=== PATIENT | female | born 1970 | race Caucasian/White ===

== ENCOUNTER → 2017-06-16 | Outpatient (REF) | payer OTHER ==
[~2017-06-16] MED LIST: ALBU17IN2 INH; ALPH600C PO; ASCO25TA PO; AZEL0.1S3; BETA10003 PO; BUPR1TAB53 PO; CENTTAB47 PO; CLAR10CA3 PO; CYCL10TA PO; ECOT81TA5 PO; FLON0.054; GABA-282 PO; IBUP80TA PO; LEVO50TA5 PO; METF-415 PO; MIRA33504 PO; MOME50SP; MUCI600T37 PO; MUCITAB PO; NASA0.653; PRIL20CA9 PO; PROAAER10 INH; SIMV20TA2 PO; SIMV40TA2 PO; SINUPOW; VENTAER IN; VITA10005 PO; VITA200016 PO; VITA500T PO; loratidine
== END ==
LOC: M LAB REF 12:58
PROVIDERS: ATTEND Physician Assistant Medical
DX: H92.11 Otorrhea, right ear (principal)

== ENCOUNTER → 2017-10-04 | Outpatient (CLI) | payer OTHER | LOC: M WHC 10:20 | DX: Z12.31 Encounter for screening mammogram for malignant neoplasm of breast (principal) | CPT/HCPCS: 77067 ==

== ENCOUNTER → 2017-12-08 | Outpatient (CLI) | payer OTHER | LOC: M PAIN 11:00 | DX: M43.02 Spondylolysis, cervical region (principal); E78.5 Hyperlipidemia, unspecified; E03.9 Hypothyroidism, unspecified; K21.9 Gastro-esophageal reflux disease without esophagitis; Z79.82 Long term (current) use of aspirin; Z79.899 Other long term (current) drug therapy; Z91.040 Latex allergy status | CPT/HCPCS: G0463 ==

== ENCOUNTER → 2018-02-23 | Outpatient (CLI) | payer OTHER | LOC: M RAD 12:29 | DX: M43.02 Spondylolysis, cervical region (principal); M48.02 Spinal stenosis, cervical region | CPT/HCPCS: 72141 ==

== ENCOUNTER → 2018-10-05 | Outpatient (CLI) | payer OTHER ==
[~2018-10-05] MED LIST changes: -ASCO25TA PO; -GABA-282 PO; +GABA-843 PO; +VITA1TAB23 PO
--- NOTE | 2018-10-25 02:13 | ECWPNPC ---
PATIENT NAME: JOSTIN HARRIS : 1970 GENDER: FEMALE VISIT DATE: 10/05/2018 DISCHARGE DATE: 10/05/18 1454 VISIT LOCKED DATE TIME: PHYSICIAN: JULIO NAYLOR RESOURCE: JULIO NAYLOR REASON FOR APPOINTMENT 1. NECK/BACK-30 MIN HISTORY OF PRESENT ILLNESS HISTORY OF PRESENT ILLNESS: PAIN THE PATIENT DESCRIBES THE PAINDURING THE LAST MONTH SEVERITY - PAIN SCORE OF3/10 48 YR OLD FEMALE WITH CHRONIV CERVICAL AND LUMBAR PAIN FOR SEVERAL YEARS. SHE REPORTS RADICULAR SYMPTOMS DOWN HER LEFT ARM.MRI CERVICAL SPINE 2018: SPONDYLOSIS C4-C5 THROUGH C6-C7.HAS NEW NARROWING ON THE RIGHT AT C5-C6 LEVEL IS NEW.MRI THROACIC SPINE 2018: NORMAL STUDYMRI LUMBAR SPINE 2018: DIFFUSE DISC BULGE AT L4-5 AND L5-S1. THERE IS GRADE 2 SPONDY;O;ISTHESIS ON L5 ON S1 WITH ASSOCIATED L5 PARS DEFECT. THERE IS COMPRESSION OF L5 NERVES IN THE NEURAL FORAMINA. FALL RISK SCREENING: SCREENING :NO FALLS REPORTED IN THE LAST YEAR CURRENT MEDICATIONS TAKING VITAMIN D 2000 UNIT TABLET DIRECTED ORALLY DAILY TAKING ASPIR-81 81 MG TABLET DELAYED RELEASE 1 TABLET ORALLY ONCE A DAY TAKING BETA CAROTENE 15 MG CAPSULE 1 CAPSULE ORALLY ONCE A DAY TAKING MULTIVITAMINS TABLET DIRECTED ORALLY DAILY TAKING VITAMIN C 500 MG CAPSULE DIRECTED ORALLY DAILY TAKING SIMVASTATIN 40 MG TABLET 1 TABLET IN THE EVENING ORALLY ONCE A DAY TAKING IBUPROFEN 800 MG TABLET 1 TABLET ORALLY NEEDED, NOTES: COUPLE DYS AGO TAKING MUCINEX 600 MG TABLET EXTENDED RELEASE 12 HOUR 1 TABLET NEEDED ORALLY DAILY TAKING ALBUTEROL SULFATE HFA 108 (90 BASE) MCG/ACT AEROSOL SOLUTION 2 PUFFS NEEDED INHALATION EVERY 4 HRS TAKING VITAMIN E 100 UNIT CAPSULE 1 CAPSULE ORALLY ONCE A DAY TAKING ALPHA LIPOIC ACID 100 MG CAPSULE ORALLY DAILY TAKING OMEPRAZOLE 40 MG CAPSULE DELAYED RELEASE 1 CAPSULE ORALLY ONCE A DAY TAKING LORATADINE 10 MG TABLET 1 TABLET ORALLY ONCE A DAY TAKING GABAPENTIN 300 MG 1 TABLET IN AM 2 TAB AT NIGHT ORALLY TWICE DAILY TAKING FLEXERIL 10 MG 30 10 MG TABLETS 1 ORALLY THREE TIMES DAILY TAKING BUPROPION HCL ER (SR) 150 MG TABLET EXTENDED RELEASE 12 HOUR 1 TABLET IN THE MORNING ORALLY BID TAKING ACIDOPHILUS 100 MG CAPSULE DIRECTED ORALLY TAKING CYCLOBENZAPRINE HCL 10 MG TABLET 1 TABLET NEEDED ORALLY THREE TIMES A DAY TAKING VITAMIN B12 1000 MCG TABLET EXTENDED RELEASE 1 TABLET ORALLY ONCE A DAY TAKING VITAMIN B COMPLEX - TABLET DIRECTED ORALLY TAKING GUAIFENESIN 400 MG TABLET 1 TABLET NEEDED ORALLY EVERY 4 HRS NOT-TAKING LEVOTHYROXINE SODIUM 50 MCG TABLET 1 TABLET ON AN EMPTY STOMACH IN THE MORNING ORALLY ONCE A DAY NOT-TAKING TOPAMAX 50 MG TABLET 1 TABLET ORALLY ONCE A DAY NOT-TAKING VALIUM 10 MG TABLET 1 ORALLY 1 TAB 1HR PRE PROC. MDD1, NOTES: 1400 NOT-TAKING OXYCODONE HCL 5 MG TABLET 2 ORALLY 2 TAB 1HR PRE PROC MDD2, NOTES: 1400 MEDICATION LIST REVIEWED AND RECONCILED WITH THE PATIENT PAST MEDICAL HISTORY HYPERLIPIDEMIA HYPOTHYROIDISM PERSISTANT HEMATURIA LUMBAR AND CERVICAL BACK PAIN ALLERGIES LATEX (FOR ALLERGY USE ONLY): RASH - ALLERGY SURGICAL HISTORY T&A 09/20 TUBES IN EARS 79,80 EPIDURAL INJECTIONS ENDOMETRIAL ABLATION AND BLADDER SLING 06/2015 TUBES IN EARS 2016 FAMILY HISTORY NO FAMILY HISTORY DOCUMENTED. SOCIAL HISTORY GENERAL: TOBACCO USE ARE YOU A:CURRENT SMOKER ARE YOU INTERESTED IN QUITTING?NOT READY TO QUIT COUNSELED THE PATIENT ON SMOKING EFFECTS, EDUCATION [id number]/28/2019 HOW MANY CIGARETTES A DAY DO YOU SMOKE?6-10 PATIENT COUNSELED ON THE DANGERS OF TOBACCO USE AND URGED TO QUIT:10/05/2018 SMOKING CESSATION INFORMATION GIVEN10/05/2018 LATEX QUESTIONNAIRE LATEX ALLERGY : HAVE YOU EVER DEVELOPED ANY TYPE OF REACTION AFTER HANDLING LATEX PRODUCTS SUCH RUBBER GLOVES, CONDOMS, DIAPHRAGMS, BALLOONS, SOCKS, OR UNDERWEAR?NO LATEX ALLERGY : HAVE YOU EVER DEVELOPED ANY TYPE OF REACTION DURING OR AFTER DENTAL APPOINTMENT, VAGINAL/RECTAL EXAMINATION, SURGICAL PROCEDURE, OR ANY OTHER EXPOSURE?NO LATEX RISK : HAVE YOU EVER HAD ANY DIFFICULTY BREATHING OR HIVES AFTER EATING OR HANDLING ANY FRUITS, OR VEGETABLES; SUCH KIWI, BANANAS, STONE FRUITS, OR CHESTNUTSNO LATEX RISK : DO YOU HAVE A PREVIOUS PERSONAL HISTORY OF MORE THAN NINE SURGERIES, SPINA BIFIDA, OR REPEATED CATHERTIZATIONS? NO LATEX RISK : ARE YOU FREQUENTLY EXPOSED TO LATEX PRODUCTS IN YOUR OCCUPATION?NO DATE ASKED : 10/05/2018 CAFFEINE CAFFEINE USE?YES HOW OFTEN AND HOW MUCH? 1-2 DAILY DIET: REGULAR. EXERCISE: NO REGULAR EXERCISE. PAIN CLINIC PFS, CLERGY, PUBLIC HEALTH REFERRALS PFS REFERRAL NEEDED?NO CLERGY REFERRAL NEEDED?NO PUBLIC HEALTH REFERRAL NEEDED?NO WAS THE PROVIDER NOTIFIED OF ANY PERTINENT INFO?YES HAS THE PATIENT BEEN EDUCATED REGARDING HIS/HER PLAN OF CARE?YES RE-ORIENTED TO PAIN MANAGEMENT HAS THE PATIENT BEEN EDUCATED REGARDING PAIN, THE RISK FOR PAIN, THE IMPORTANCE OF EFFECTIVE PAIN MANAGEMENT, AND THE PAIN ASSESSMENT PROCESS?YES ADVANCE DIRECTIVE ADVANCE DIRECTIVE DISCUSSED WITH PATIENT:YES PT DECLINES INFORMATION AND NO HCP ON FILE HOSPITALIZATION/MAJOR DIAGNOSTIC PROCEDURE NO HOSPITALIZATION HISTORY. REVIEW OF SYSTEMS REVIEWED BY: PROVIDER: . CONSTITUTIONAL: ANY CHANGE IN YOUR MEDICAL CONDITION? NO . CHILLS NO . FEVER NO . INFECTION: DO YOU HAVE NEW INFECTIONS? NO . DO YOU HAVE HISTORY OF MRSA? NO . MUSCULOSKELETAL: ANY NEW PATTERNS OF PAIN OR NUMBNESS? YES, PAIN RADIATING FROM NECK DOWN ARM TO WRIST . GASTROENTEROLOGY: ANY NEW CHANGE IN BOWEL CONTROL? NO . GENITOURINARY: ANY NEW CHANGE IN BLADDER CONTROL? NO . IS THERE A CHANCE YOU COULD BE ? NO . HEMATOLOGY/LYMPH: DO YOU TAKE ANY BLOOD THINNERS? (FOR EXAMPLE- COUMADIN, PLAVIX, AGGRENOX, PLATEL, PRADAXA, OR XARELTO) NO . WHEN WAS YOUR LAST DOSE? DATE: TIME: . NEUROLOGY: HAVE YOU FALLEN IN THE PAST 12 MONTHS? NO . ANY NEW EXTREMITY NUMBNESS OR WEAKNESS? NO . CARDIOLOGY: DO YOU HAVE A PACEMAKER OR DEFIBRILLATOR? NO . RESPIRATORY: HAVE YOU BEEN SICK IN THE PAST WEEK? NO . FEVER NO . FLU LIKE SYMPTOMS? NO . COUGH NO . INTEGUMENTARY: DO YOU HAVE ANY RASHES OR OPEN SORES? NO . ALLERGIC/IMMUNO: ARE YOU ALLERGIC TO IV DYE? NO . ANY NEW ALLERGIES? NO . PSYCHIATRIC: DO YOU HAVE THOUGHTS OF HURTING YOURSELF OR SOMEONE ELSE? NO . ARE YOU ABUSED, NEGLECTED, OR IN AN UNSAFE ENVIRONMENT? NO . ENDOCRINOLOGY: ARE YOU DIABETIC? NO . OTHER: DO YOU NEED ANY PRESCRIPTIONS? NO . IF YES, PLEASE LIST: ____ . ANY NEW PROBLEMS WITH YOUR MEDICATIONS? NO . WHEN DID YOU LAST EAT? ____ . WHEN DID YOU LAST DRINK? ____ . WHAT DID YOU LAST DRINK? ____ . NAME OF PERSON DRIVING YOU HOME? ____ . DO YOU HAVE ANY OTHER QUESTIONS OR CONCERNS NO . VITAL SIGNS WT 197.8 LBS, HT 5'1", BMI 37.37 INDEX, BP 151/92 MM HG, HR 89 /MIN, RR 18 /MIN, TEMP 99.2 F, OXYGEN SAT % 99%, SAFE IN ENV? (Y/N) Y, REVIEWED BY: TAMMI. EXAMINATION GENERAL EXAMINATION: GENERAL APPEARANCE:NO ACUTE DISTRESS, WELL NOURISHED AND HYDRATED. PSYCHAPPROPRIATE MOOD AND AFFECT . NECK: NECK : NORMAL ALIGNMENT. TENDER TO PALAPATION ALONG LEFT PARACERVICAL MUSCLES.POSITIVE SPURLING'S LEFT SIDE. FROM. LUNGS:CLEAR TO AUSCULTATION BILATERALLY, NO WHEEZES, RHONCHI, RALES. HEART:NO MURMURS, REGULAR RATE AND RHYTHM. NEUROLOGIC EXAM:ALERT AND ORIENTED X 3, DTRS 1-2+ IN ALL 4 EXTREMITIES. ASSESSMENTS CERVICALGIA - M54.2 (PRIMARY) CERVICAL DISC DISORDER WITH RADICULOPATHY, MID-CERVICAL REGION - M50.12 TREATMENT CERVICALGIA CLINICAL NOTES: SALTY . DISPOSITION & COMMUNICATION FOLLOW UP POST PROCEDURE (REASON: SALTY) ELECTRONICALLY SIGNED BY QUYEN LEMA ON 10/24/2018 AT 10:30 AM EDT DISCLAIMER : THIS IS A VISIT SUMMARY EXTRACTED FROM THE [employer] CHART. IT IS NOT A COPY OF THE [employer] PROGRESS NOTE. ASPNE
== END ==
LOC: M PAIN 14:00
PROVIDERS: ATTEND Nurse Practitioner Family
DX: M50.120 Mid-cervical disc disorder, unspecified level (principal); G89.29 Other chronic pain; E03.9 Hypothyroidism, unspecified; E78.5 Hyperlipidemia, unspecified; F17.210 Nicotine dependence, cigarettes, uncomplicated; Z79.82 Long term (current) use of aspirin; Z79.899 Other long term (current) drug therapy; Z91.040 Latex allergy status

== ENCOUNTER → 2018-10-12 | Outpatient (CLI) | payer OTHER ==
--- NOTE | 2018-10-12 12:06 | REPMRS ---
Patient History The patient states she had a clinical breast exam in 09/2018. Family history of breast cancer at age 55 in mother, breast cancer at age 50 or over in maternal aunt, ovarian cancer under age 50 in maternal cousin. 3D TOMOSYNTHESIS WAS PERFORMED. Digital Woman Screen Mammo: October 12, 2018 - Exam #: [id number] Bilateral CC and MLO view(s) were taken. Technologist: Nisha Disla Technologist Prior study comparison: October 04, 2017, digital woman screen mammo performed at [facility] [employer] [facility] to [facility]. July 01, 2016, digital woman screen mammo performed at [facility] to [facility]. FINDINGS: There are scattered fibroglandular densities. There has been no change in the appearance of the mammogram from the prior studies. There is a mild amount of residual fibroglandular tissue which is fairly symmetric. There is no interval development of dominant mass, architectural distortion, or clustered microcalcification suggestive of malignancy. Assessment: BI-RADS/ACR category 1 mammogram. Negative Mammogram. Recommendation Routine screening mammogram in 1 year (for women over age 40). This mammogram was interpreted with the aid of an FDA-approved computer-aided dectection system. THE LIFETIME RISK OF BREAST CANCER IS 21.5%, THEREFORE SUPPLEMENTAL SCREENING MRI OF THE BREASTS IS RECOMMENDED. Electronically Signed By: Chadwick Ritchie MD 10/12/18 [id number]
== END ==
LOC: M WHC 11:02
PROVIDERS: ATTEND Nurse Practitioner Family
DX: Z12.31 Encounter for screening mammogram for malignant neoplasm of breast (principal); Z80.3 Family history of malignant neoplasm of breast; Z80.41 Family history of malignant neoplasm of ovary

== ENCOUNTER → 2018-11-16 | Outpatient (CLI) | payer OTHER ==
[~2018-11-16] MED LIST changes: +ISOVUE-M 300 61% 15ML VIAL (Q9967) As Ordered ONE; +LIDOCAINE 1% SDV INJ 30 ML VIAL As Ordered ONE; +diazePAM 5 MG TAB As Ordered ONE; +methylPREDNISolone SUSP 40 MG/ML (DEPO-medrol) VIAL (J1030) As Ordered ONE; +oxyCODONE 5MG TAB As Ordered ONE
--- NOTE | 2018-11-16 16:09 | REP ---
Partial cervical spine series: Three views. History: Cervical epidural steroid injection for pain. 10 seconds of fluoroscopy time is reported. Findings: A sequence of three last image hold fluoroscopically obtained spot radiographs of the cervicothoracic junction document needle position and contrast injection associated with cervical epidural injection procedure. Electronically Signed by Ulisses Tejada MD 11/16/2018 04:51 P
--- NOTE | 2018-12-02 23:32 | ECWPNPC ---
PATIENT NAME: JOSTIN HARRIS : 1970 GENDER: FEMALE VISIT DATE: 11/16/2018 DISCHARGE DATE: 11/16/18 1607 VISIT LOCKED DATE TIME: PHYSICIAN: RIMA LLOYD MD RESOURCE: RIMA LLOYD MD REASON FOR APPOINTMENT 1. SALTY HISTORY OF PRESENT ILLNESS HISTORY OF PRESENT ILLNESS: PAIN THE PATIENT DESCRIBES THE PAIN... FALL RISK SCREENING: SCREENING :NO FALLS REPORTED IN THE LAST YEAR CURRENT MEDICATIONS TAKING VITAMIN D 2000 UNIT TABLET DIRECTED ORALLY DAILY, NOTES: 11/16 629 TAKING ASPIR-81 81 MG TABLET DELAYED RELEASE 1 TABLET ORALLY ONCE A DAY, NOTES: NONE IN ONE WEEK TAKING VITAMIN C 500 MG CAPSULE DIRECTED ORALLY DAILY, NOTES: 11/15/18 NOON TAKING SIMVASTATIN 40 MG TABLET 1 TABLET IN THE EVENING ORALLY ONCE A DAY, NOTES: 11/15/18 PM TAKING IBUPROFEN 800 MG TABLET 1 TABLET ORALLY NEEDED, NOTES: 11/15/18 PM TAKING MUCINEX 600 MG TABLET EXTENDED RELEASE 12 HOUR 1 TABLET NEEDED ORALLY DAILY, NOTES: 11/16/18629 TAKING ALBUTEROL SULFATE HFA 108 (90 BASE) MCG/ACT AEROSOL SOLUTION 2 PUFFS NEEDED INHALATION EVERY 4 HRS, NOTES: 2 DAYS AGO TAKING VITAMIN E 100 UNIT CAPSULE 1 CAPSULE ORALLY ONCE A DAY, NOTES: 629 TAKING ALPHA LIPOIC ACID 200 MG CAPSULE ORALLY DAILY, NOTES: 11/15/18 PM TAKING OMEPRAZOLE 40 MG CAPSULE DELAYED RELEASE 1 CAPSULE ORALLY ONCE A DAY, NOTES: 11/15/18 TAKING LORATADINE 10 MG TABLET 1 TABLET ORALLY ONCE A DAY, NOTES: 629 TAKING GABAPENTIN 300 MG 1 TABLET ORALLY QID, NOTES: 11/16/18629 TAKING FLEXERIL 10 MG 30 10 MG TABLETS 1 ORALLY THREE TIMES DAILY, NOTES: 11/16/18629 TAKING BUPROPION HCL ER (SR) 150 MG TABLET EXTENDED RELEASE 12 HOUR 1 TABLET IN THE MORNING ORALLY BID, NOTES: 11/16 629 TAKING ACIDOPHILUS 100 MG CAPSULE DIRECTED ORALLY , NOTES: 11/15/18 PM TAKING VITAMIN B COMPLEX - TABLET DIRECTED ORALLY , NOTES: 2 DAYS AGO TAKING GUAIFENESIN 400 MG TABLET 1 TABLET NEEDED ORALLY EVERY 4 HRS, NOTES: 11/15/18 PM NOT-TAKING BETA CAROTENE 15 MG CAPSULE 1 CAPSULE ORALLY ONCE A DAY NOT-TAKING MULTIVITAMINS TABLET DIRECTED ORALLY DAILY NOT-TAKING CYCLOBENZAPRINE HCL 10 MG TABLET 1 TABLET NEEDED ORALLY THREE TIMES A DAY, NOTES: DUPLICATE NOT-TAKING VITAMIN B12 1000 MCG TABLET EXTENDED RELEASE 1 TABLET ORALLY ONCE A DAY NOT-TAKING LEVOTHYROXINE SODIUM 50 MCG TABLET 1 TABLET ON AN EMPTY STOMACH IN THE MORNING ORALLY ONCE A DAY NOT-TAKING TOPAMAX 50 MG TABLET 1 TABLET ORALLY ONCE A DAY NOT-TAKING VALIUM 10 MG TABLET 1 ORALLY 1 TAB 1HR PRE PROC. MDD1, NOTES: 1400 NOT-TAKING OXYCODONE HCL 5 MG TABLET 2 ORALLY 2 TAB 1HR PRE PROC MDD2, NOTES: 1400 MEDICATION LIST REVIEWED AND RECONCILED WITH THE PATIENT PAST MEDICAL HISTORY HYPERLIPIDEMIA HYPOTHYROIDISM PERSISTANT HEMATURIA LUMBAR AND CERVICAL BACK PAIN ALLERGIES LATEX (FOR ALLERGY USE ONLY): RASH - ALLERGY SURGICAL HISTORY T&A 09/20 TUBES IN EARS 79,80 EPIDURAL INJECTIONS ENDOMETRIAL ABLATION AND BLADDER SLING 06/2015 TUBES IN EARS 2016 FAMILY HISTORY FATHER: DIAGNOSED WITH HYPERTENSION SOCIAL HISTORY GENERAL: TOBACCO USE ARE YOU A:CURRENT SMOKER ARE YOU INTERESTED IN QUITTING?NOT READY TO QUIT COUNSELED THE PATIENT ON SMOKING EFFECTS, EDUCATION [id number]/28/2019 HOW MANY CIGARETTES A DAY DO YOU SMOKE?6-10 PATIENT COUNSELED ON THE DANGERS OF TOBACCO USE AND URGED TO QUIT:10/05/2018 SMOKING CESSATION INFORMATION GIVEN10/05/2018 PAIN CLINIC PFS, CLERGY, PUBLIC HEALTH REFERRALS PFS REFERRAL NEEDED?NO CLERGY REFERRAL NEEDED?NO PUBLIC HEALTH REFERRAL NEEDED?NO WAS THE PROVIDER NOTIFIED OF ANY PERTINENT INFO?YES HAS THE PATIENT BEEN EDUCATED REGARDING HIS/HER PLAN OF CARE?YES RE-ORIENTED TO PAIN MANAGEMENT HAS THE PATIENT BEEN EDUCATED REGARDING PAIN, THE RISK FOR PAIN, THE IMPORTANCE OF EFFECTIVE PAIN MANAGEMENT, AND THE PAIN ASSESSMENT PROCESS?YES LATEX QUESTIONNAIRE LATEX ALLERGY : HAVE YOU EVER DEVELOPED ANY TYPE OF REACTION AFTER HANDLING LATEX PRODUCTS SUCH RUBBER GLOVES, CONDOMS, DIAPHRAGMS, BALLOONS, SOCKS, OR UNDERWEAR?YES DATE ASKED : 11/16/2018 CAFFEINE CAFFEINE USE?YES HOW OFTEN AND HOW MUCH? 1-2 DAILY ADVANCE DIRECTIVE ADVANCE DIRECTIVE DISCUSSED WITH PATIENT:YES PT DECLINES INFORMATION AND NO HCP ON FILE 11/16/18 DIET: REGULAR. LANGUAGE LANGUAGES SPOKEN:CZECH EXERCISE: NO REGULAR EXERCISE. REVIEWED WITH PT 11/16/18 1403 BV. HOSPITALIZATION/MAJOR DIAGNOSTIC PROCEDURE NO HOSPITALIZATION HISTORY. REVIEW OF SYSTEMS REVIEWED BY: PROVIDER: . CONSTITUTIONAL: ANY CHANGE IN YOUR MEDICAL CONDITION? NO . CHILLS NO . FEVER NO . INFECTION: DO YOU HAVE NEW INFECTIONS? NO . DO YOU HAVE HISTORY OF MRSA? NO . MUSCULOSKELETAL: ANY NEW PATTERNS OF PAIN OR NUMBNESS? NO . GASTROENTEROLOGY: ANY NEW CHANGE IN BOWEL CONTROL? NO . GENITOURINARY: ANY NEW CHANGE IN BLADDER CONTROL? NO . IS THERE A CHANCE YOU COULD BE ? NO . HEMATOLOGY/LYMPH: DO YOU TAKE ANY BLOOD THINNERS? (FOR EXAMPLE- COUMADIN, PLAVIX, AGGRENOX, PLATEL, PRADAXA, OR XARELTO) NO . WHEN WAS YOUR LAST DOSE? DATE: TIME: . NEUROLOGY: HAVE YOU FALLEN IN THE PAST 12 MONTHS? NO . ANY NEW EXTREMITY NUMBNESS OR WEAKNESS? NO . CARDIOLOGY: DO YOU HAVE A PACEMAKER OR DEFIBRILLATOR? NO . RESPIRATORY: HAVE YOU BEEN SICK IN THE PAST WEEK? NO . FEVER NO . FLU LIKE SYMPTOMS? NO . COUGH NO . INTEGUMENTARY: DO YOU HAVE ANY RASHES OR OPEN SORES? NO . ALLERGIC/IMMUNO: ARE YOU ALLERGIC TO IV DYE? NO . ANY NEW ALLERGIES? NO . PSYCHIATRIC: DO YOU HAVE THOUGHTS OF HURTING YOURSELF OR SOMEONE ELSE? NO . ARE YOU ABUSED, NEGLECTED, OR IN AN UNSAFE ENVIRONMENT? NO . ENDOCRINOLOGY: ARE YOU DIABETIC? NO . OTHER: DO YOU NEED ANY PRESCRIPTIONS? NO . IF YES, PLEASE LIST: ____ . ANY NEW PROBLEMS WITH YOUR MEDICATIONS? NO . WHEN DID YOU LAST EAT? 11/15/18 2230 . WHEN DID YOU LAST DRINK? 11/16/18 1015 . WHAT DID YOU LAST DRINK? BLACK COFFEE AND WATER . NAME OF PERSON DRIVING YOU HOME? KAY MONSALVE . DO YOU HAVE ANY OTHER QUESTIONS OR CONCERNS NO . VITAL SIGNS WT 193.6 LBS, HT 5'1", BMI 36.58 INDEX, BP 160/95 MM HG, HR 87 /MIN, RR 18 /MIN, TEMP 99.0 F, OXYGEN SAT % 95%, NA INITIALS SC 12:06, REVIEWED BY: BV. ASSESSMENTS CERVICAL DISC DISORDER WITH RADICULOPATHY OF CERVICAL REGION - M50.10 (PRIMARY) PROCEDURES PN CERVICAL EPIDURAL PRE PROCEDURE DIAGNOSIS CERVICAL DISC DISORDER WITH RADICULOPATHY POST PROCEDURE DIAGNOSIS CERVICAL DISC DISORDER WITH RADICULOPATHY PROCEDURE CERVICAL EPIDURAL STEROID INJECTION UNDER FLUOROSCOPIC GUIDANCE SURGEON DR. RIMA LLOYD [employer]ACH NONE ANESTHESIA LOCAL PRE PROCEDURE NOTE THE PATIENT HAS A HISTORY OF CHRONIC CERVICAL PAIN. I EVALUATE THE PATIENT AND REVIEWED THE CHART. I WENT OVER THE RISKS, ALTERNATIVES, AND BENEFITS ASSOCIATED WITH THIS PROCEDURE. THE PATIENT WOULD LIKE TO PROCEED AND GIVE CONSENT TO PERFORMED THE PROCEDURE. THE PATIENT DENIES UNEXPLAINABLE WEIGHT LOSS, FEVER, CHILLS, OR NEW CHANGES IN URINARY OR BOWEL CONTROL DESCRIPTION OF PROCEDURE THE PATIENT WAS BROUGHT TO THE PROCEDURE ROOM AND PLACED IN THE PRONE POSITION. THE CERVICOTHORACIC AREA WAS CLEANED WITH BETADINE SOLUTION AND DRAPED ASEPTICALLY. THE PROCEDURE WAS DONE UNDER STERILE CONDITIONS. I CHECKED LATERALITY AND THE LEVEL WHERE THE PROCEDURE WAS GOING TO BE PERFORMED WITH THE PATIENT AND THE SUPPORTING STAFF AT THE MOMENT OF THE TIME OUT IN THE PROCEDURE ROOM. UNDER FLUOROSCOPIC GUIDANCE, THE TARGET WAS SELECTED AT THE INTERLAMINAR LEVEL OF C7-T1. LIDOCAINE WAS USED TO NUMB THE SKIN AND THE SUBCUTANEOUS TISSUE BELOW IT. EPIDURAL TUOHY NEEDLE 17-GAUGE WAS ADVANCED UNDER FLUOROSCOPIC GUIDANCE AND FOLLOWING PATIENT FEEDBACK UNTIL THE EPIDURAL SPACE WAS REACHED 6 CM DEEP INTO THE SKIN BY THE LOSS OF RESISTANCE TECHNIQUE. ISOVUE M DYE 30%, 0.25 ML, WAS INJECTED SHOWING ADEQUATE SPREAD OF THE DYE. THEN, A SOLUTION OF 3 ML OF NORMAL SALINE WITH DEPO-MEDROL 60 MG WAS INJECTED SLOWLY FOLLOWING PATIENT FEEDBACK. THERE WAS NO EVIDENCE OF BLOOD, PARESTHESIA OR CEREBROSPINAL FLUID DURING THE PROCEDURE. THE PATIENT WAS SENT TO THE RECOVERY ROOM. THE PATIENT WAS MOVING THE EXTREMITIES AND DOING WELL. THERE WAS NO COMPLICATION DURING THE PROCEDURE. FLUOROSCOPY TIME WAS 10 SECONDS POST PROCEDURE NOTE THE PATIENT WILL BE SEEN IN A FOLLOW UP IN THE NEXT FEW WEEKS. INSTRUCTIONS WERE GIVEN, QUESTIONS WERE ANSWERED, AND THE PATIENT EXPRESSED UNDERSTANDING AND AGREES WITH THE PLAN. I, LAM CORDOVA, DOCUMENTED THE ABOVE INFORMATION ACTING A SCRIBE FOR DR. LLOYD. I HAVE REVIEWED THE ABOVE DOCUMENT, WRITTEN BY LAM CLARK AND I VERIFY THAT IT IS ACCURATE. DIAGNOSTIC IMAGING [facility] FLUORO GUIDE SPINE INJECTION (PAIN)[id number] PROCEDURE CODES 6045F RADXPS IN END [id number] PXD [id number] CERVICAL/THORACIC W/ IMAGING DISPOSITION & COMMUNICATION FOLLOW UP 3 WEEKS ELECTRONICALLY SIGNED BY RIMA LLOYD MD, MD ON 12/02/2018 AT 04:53 PM EDT DISCLAIMER : THIS IS A VISIT SUMMARY EXTRACTED FROM THE [employer] CHART. IT IS NOT A COPY OF THE [employer] PROGRESS NOTE. MTDD
== END ==
LOC: M PAIN 12:15
PROVIDERS: ATTEND Anesthesiology
DX: G89.29 Other chronic pain (principal); M50.10 Cervical disc disorder with radiculopathy, unspecified cervical region; E78.5 Hyperlipidemia, unspecified; E03.9 Hypothyroidism, unspecified; F17.210 Nicotine dependence, cigarettes, uncomplicated; Z79.82 Long term (current) use of aspirin; Z79.899 Other long term (current) drug therapy; Z91.040 Latex allergy status
CPT/HCPCS: 62321; J1030; Q9967

== ENCOUNTER 2020-02-29 18:57 | Inpatient (IN) | payer OTHER ==
[~2020-02-29] VITALS: Ht 154.9 cm; Wt 77.5 kg
[~2020-02-29 18:57] MED LIST changes: +ASCO250T20 PO; +CYCL-707 PO; -CYCL10TA PO; -ISOVUE-M 300 61% 15ML VIAL (Q9967) As Ordered ONE; -LIDOCAINE 1% SDV INJ 30 ML VIAL As Ordered ONE; -SIMV20TA2 PO; +SIMV20TA22 PO; -SIMV40TA2 PO; +SIMV40TA20 PO; +VITA-243 PO; -VITA1TAB23 PO; -VITA500T PO; -diazePAM 5 MG TAB As Ordered ONE; -methylPREDNISolone SUSP 40 MG/ML (DEPO-medrol) VIAL (J1030) As Ordered ONE; -oxyCODONE 5MG TAB As Ordered ONE
[2020-02-29] MEDS ORDERED: NS 1,000 ML IV ONE (19:30)
[2020-02-29 19:55] LABS: BASO # 0.1 10^3/uL (0.0-0.2); BASO % 0.7 % (0.0-1.0); EOS # 0.3 10^3/uL (0.0-0.5); EOS % 2.3 % (0.0-3.0); HEMOGLOBIN 11.8 g/dl (12.0-15.5); LYMPH # 3.8 10^3/uL (1.5-5.0); LYMPH % 25.8 % (24.0-44.0); MEAN CORPUSCULAR HEMOGLOBIN 26.5 pg (27.0-33.0); MEAN CORPUSCULAR HGB CONC 31.9 g/dl (32.0-36.5); MEAN CORPUSCULAR VOLUME 83.1 fl (80.0-96.0); MONO # 1.1 10^3/uL (0.0-0.8); MONO % 7.5 % (0.0-5.0); NEUTROPHILS # 9.3 10^3/uL (1.5-8.5); NEUTROPHILS % 63.4 % (36.0-66.0); PLATELET COUNT, AUTOMATED 377 10^3/uL (150-450); RED BLOOD COUNT 4.45 10^6/uL (4.00-5.40); WHITE BLOOD COUNT 14.7 10^3/uL (4.0-10.0)
[2020-02-29] MEDS ORDERED: GASTROGRAFIN SOLUTION 30ML (Q9963) As Ordered ONE (19:59)
[2020-02-29 20:31] LABS: ALBUMIN 3.3 GM/DL (3.2-5.2); ALT/SGPT 29 U/L (12-78); BILIRUBIN,DIRECT < 0.1 MG/DL (0.0-0.2); BILIRUBIN,TOTAL 0.2 MG/DL (0.2-1.0); BLOOD UREA NITROGEN 14 MG/DL (7-18); CALCIUM LEVEL 8.5 MG/DL (8.5-10.1); CARBON DIOXIDE LEVEL 21 MEQ/L (21-32); CHLORIDE LEVEL 109 MEQ/L (98-107); CREATININE FOR GFR 0.75 MG/DL (0.55-1.30); GLOMERULAR FILTRATION RATE > 60.0 (>58); GLUCOSE, FASTING 99 MG/DL (70-100); LIPASE 152 U/L (73-393); POTASSIUM SERUM 3.9 MEQ/L (3.5-5.1); SODIUM LEVEL 135 MEQ/L (136-145); TOTAL PROTEIN 7.1 GM/DL (6.4-8.2)
[2020-02-29] MEDS: GASTROGRAFIN SOLUTION 30ML PO SCH (20:39)
[2020-02-29] MEDS ORDERED: ISOVUE-370 76% 100ML VIAL As Ordered ONE (20:59)
--- NOTE | 2020-02-29 21:33 | REPVR ---
PROCEDURE INFORMATION: Exam: CT Abdomen And Pelvis With Contrast Exam date and time: 02/29/2020 9:02 PM Age: 49 years old Clinical indication: Abdominal pain; Generalized; Additional info: 1 month of abd pain/diarrhea TECHNIQUE: Imaging protocol: Computed tomography of the abdomen and pelvis with intravenous contrast. Radiation optimization: All CT scans at this facility use at least one of these dose optimization techniques: automated exposure control; mA and/or kV adjustment per patient size (includes targeted exams where dose is matched to clinical indication); or iterative reconstruction. Contrast material: ISOVUE 370; Contrast volume: 100 ml; Contrast route: INTRAVENOUS (IV); COMPARISON: CT ABD PELVIS W/O FOL BY WIT 02/06/2014 5:44 PM FINDINGS: Liver: There is a diffuse decrease in hepatic parenchymal density, consistent with fatty infiltration. There are no focal liver lesions present. Gallbladder and bile ducts: The gallbladder is normal. Pancreas: The pancreas is normal. Spleen: The spleen is normal. Adrenals: The adrenal glands are normal. Kidneys and ureters: The kidneys are normal. Stomach and bowel: The stomach is normal. There is acute diverticulitis involving the distal sigmoid colon, with phlegmon and developing abscess. Small dots of extraluminal air are noted. Appendix: A normal appendix is identified. Intraperitoneal space: See above. Vasculature: The vasculature is normal. Lymph nodes: There are several small to mildly prominent retroperitoneal lymph nodes which are likely reactive. Bladder: The bladder is normal. Reproductive: The uterus is normal. Bones/joints: Unremarkable. No acute fracture. IMPRESSION: Acute diverticulitis with phlegmon and developing abscess. Localized extraluminal air is noted. Electronically signed by: Nikki Valdez On 02/29/2020 21:33:32 PM
[2020-02-29] MEDS ORDERED: metroNIDAZOLE 500 MG in IV 1 EA IV ONE (21:45)
[2020-02-29] MEDS ORDERED: CIPROFLOXACIN 400 MG in IV 1 EA IV ONE (21:45)
[2020-02-29] MEDS ORDERED: MORPHINE 4 MG/ML 1ML VIAL/SYRINGE (J2270) IV ONE (21:45)
[2020-03-01] MEDS ORDERED: MUCI600T31 PO (00:05)
[2020-03-01] MEDS ORDERED: VITA200048 PO (00:05)
[2020-03-01] MEDS ORDERED: VITA100012 PO (00:05)
[2020-03-01] MEDS ORDERED: OMEP-221 PO (00:05)
[2020-03-01] MEDS: NS 1,000 ML IV SCH ×3 (03:24→13:12)
--- NOTE | 2020-03-01 05:41 | HPEPDOC ---
[facility] Medical History & Physical Date of Admission Mar 01, 2020 Date of Service: Mar 01, 2020 History and Physical CHIEF COMPLAINT: Abdominal pain HISTORY OF PRESENT ILLNESS: Patient is 49 year old female with PMH Hypothyroidism, GERD, HLD, and Asthma presents to the ER with complaints of persistent abdominal pain for 6 weeks. She reportedly was supposed to be seeing her PCP today for the problem but the appt was cancelled so she went to the ER. Pain had been intermittent for 6 weeks that is described as sharp in nature, generalized, worst at 10/10 that is associated with nausea briefly at one point but otherwise no other significant associations. She denies any noticable fever, chills, nausea, vomiting recently. Of note, patient state that she was told she had diverticulitis in the past about 6 years ago after being seen in the ER but did not get treated with antibiotics. She had seen Dr. Matamoros as outpatient and had a colonoscopy done then. Patient currently is comfortable and does not complain of any discomfort at all until her abdomen is palpated. CT scan done in ER shows findings consistent with acute diverticulitis of the distal sigmoid colon with phlegmon and developing abscess and small localized extraluminal air. PAST MEDICAL HISTORY: Refer to HPI PAST SURGICAL HISTORY: Tonsillectomy Ear surgery Endometrial ablation SOCIAL HISTORY: Smokes 5-10 cigarettes a day. Social alcohol use. uses marijuana and cocaine, last use yesterday. FAMILY HISTORY: mother- breast cancer ALLERGIES: Please see below. REVIEW OF SYSTEMS: 10 point ROS negative except as above HOME MEDICATIONS: Please see below. PHYSICAL EXAMINATION: - General: Lying in bed comfortably, Speaking in full sentences, AAOx3 - HEENT: Atraumatic, PERRLA - CVS: Normal rate, normal rhythm - Lungs: Good air entry bilaterally, No appreciable wheezing / rales / rhonchi - Abdomen: Soft, Moderate to severe tenderness generalized with palpation. Some guarding, no rebound tenderness. - Extremities: No extremity swelling, limbs intact - Skin: Warm and dry - Neuro: No focal motor or sensory deficit LABORATORY DATA: See below. IMAGING: CT Abdomen/pelvis Liver: There is a diffuse decrease in hepatic parenchymal density, consistent with fatty infiltration. There are no focal liver lesions present. Gallbladder and bile ducts: The gallbladder is normal. Pancreas: The pancreas is normal. Spleen: The spleen is normal. Adrenals: The adrenal glands are normal. Kidneys and ureters: The kidneys are normal. Stomach and bowel: The stomach is normal. There is acute diverticulitis involving the distal sigmoid colon, with phlegmon and developing abscess. Small dots of extraluminal air are noted. Appendix: A normal appendix is identified. Intraperitoneal space: See above. Vasculature: The vasculature is normal. Lymph nodes: There are several small to mildly prominent retroperitoneal lymph nodes which are likely reactive. Bladder: The bladder is normal. Reproductive: The uterus is normal. Bones/joints: Unremarkable. No acute fracture. IMPRESSION: Acute diverticulitis with phlegmon and developing abscess. Localized extraluminal air is noted. MICROBIOLOGY: Please see below. ASSESSMENT AND PLAN: 1. Acute diverticulitis of sigmoid colon w/ phlegmon and developing abscess - Pain improving, c/w pain control. - Maintain on Abx cipro and flagyl. Consult surgery, Dr. Bynum contacted in ER. - NPO at this time until after evaluation by surgery. 2. Hypothyroidism - no medication is listed. - f/u to see if patient is still taking synthroid. 3. HLD 4. GERD - omeprazole PRN 5. asthma - Duonebs PRN. DVT ppx: SCD Code status: Full code Vital Signs Vital Signs Date Time Temp Pulse Resp B/P (MAP) Pulse Ox O2 Delivery O2 Flow Rate FiO2 03/01/20 02:47 50 18 101/54 (70) 97 Room Air 02/29/20 23:32 98.0 Laboratory Data Labs 24H Laboratory Tests 2 02/29/20 19:40: Immature Granulocyte % (Auto) 0.3, Neutrophils (%) (Auto) 63.4, Lymphocytes (%) (Auto) 25.8, Monocytes (%) (Auto) 7.5H, Eosinophils (%) (Auto) 2.3, Basophils (%) (Auto) 0.7, Neutrophils # (Auto) 9.3H, Lymphocytes # (Auto) 3.8, Monocytes # (Auto) 1.1H, Eosinophils # (Auto) 0.3, Basophils # (Auto) 0.1, Nucleated Red Blood Cells % (auto) 0.0, Anion Gap 5L, Glomerular Filtration Rate > 60.0, Calcium Level 8.5, Total Bilirubin 0.2, Direct Bilirubin < 0.1, Aspartate Amino Transf (AST/SGOT) 19, Alanine Aminotransferase (ALT/SGPT) 29, Alkaline Phospha tase 123H, Total Protein 7.1, Albumin 3.3, Albumin/Globulin Ratio 0.9L, Lipase 152 02/29/20 21:42: Urine Color COLORLESS, Urine Appearance CLEAR, Urine pH 5.0, Urine Specific Grav ity 1.044, Urine Protein NEGATIVE, Urine Glucose (UA) NEGATIVE, Urine Ketones NEGATIVE, Urine Blood 1+H, Urine Nitrite NEGATIVE, Urine Bilirubin NEGATIVE, Urine Urobilinogen 0.2, Urine Leukocyte Esterase NEGATIVE, Urine WBC (Auto) 0, Urine RBC (Auto) 1, Urine Hyaline Casts (Auto) 0, Urine Bacteria (Auto) NEGATIVE, Urine Squamous Epithelial Cells 0, Urine Sperm (Auto) CBC/BMP Laboratory Tests 02/29/20 19:40 Home Medications Scheduled Ascorbic Acid (Vitamin C) 500 Mg Tab, 500 MG PO DAILY Ergocalciferol (Vitamin D2) (Vitamin D2) 50 Mcg Capsule, 2,000 UNIT PO DAILY Guaifenesin (Mucinex) 600 Mg Tab.er.12h, 600 MG PO DAILY Loratadine (Claritin) 10 Mg Cap, 10 MG PO DAILY Omeprazole (Omeprazole) 40 Mg Capsule.dr, 40 MG PO DAILY Vitamin E (Vitamin E) 1,000 Unit Capsule, 1,000 UNIT PO 3XW TUESDAY, TUESDAY, TUESDAY Scheduled PRN Albuterol Sulfate (Ventolin Hfa) 108 Mcg/Act Aer, 108 MCG IN Q4HP PRN for SHORTNESS OF BREATH USE WITH SPACER Allergies Coded Allergies: No Known Allergies (Unverified , 02/29/20) A-FIB/CHADSVASC A-FIB History Current/History of A-Fib/PAF?: No FEDERICA HA MD Mar 01, 2020 05:41
[2020-03-01] MEDS ORDERED: IPRATROPIUM 0.5MG/ALBUTEROL 2.5MG INH SOL UD 3ML (DUONEB) NEB PRN (05:45)
[2020-03-01 06:41] LABS: HEMATOCRIT 37.1 % (36.0-47.0); HEMOGLOBIN 11.5 g/dl (12.0-15.5); MEAN CORPUSCULAR HEMOGLOBIN 26.3 pg (27.0-33.0); MEAN CORPUSCULAR VOLUME 84.7 fl (80.0-96.0); PLATELET COUNT, AUTOMATED 337 10^3/uL (150-450); RED BLOOD COUNT 4.38 10^6/uL (4.00-5.40); WHITE BLOOD COUNT 10.5 10^3/uL (4.0-10.0)
[2020-03-01] MEDS: metroNIDAZOLE 500 MG in IV 1 EA IV SCH ×3 (06:50→22:39)
[2020-03-01 06:59] LABS: BLOOD UREA NITROGEN 8 MG/DL (7-18); CALCIUM LEVEL 8.2 MG/DL (8.5-10.1); CARBON DIOXIDE LEVEL 24 MEQ/L (21-32); CHLORIDE LEVEL 109 MEQ/L (98-107); GLOMERULAR FILTRATION RATE > 60.0 (>58); GLUCOSE, FASTING 96 MG/DL (70-100); POTASSIUM SERUM 3.8 MEQ/L (3.5-5.1); SODIUM LEVEL 139 MEQ/L (136-145)
[2020-03-01] MEDS ORDERED: MORPHINE 2 MG/ML 1ML VIAL (J2270) IV ONE (08:30)
--- NOTE | 2020-03-01 08:32 | IPNPDOC ---
Date Seen The patient was seen on 03/01/20. Progress Note SUBJECTIVE: c/o mild diffuse abdominal pain. No fevers or chills. Denies CP, n/v/d. OBJECTIVE PHYSICAL EXAMINATION: VITAL SIGNS: Please see below. GENERAL: comfortable in bed, lying flat HEENT: PERRLA CARDIOVASCULAR: RRR, normal S1S2. RESPIRATORY: CTAB. ABDOMINAL: mild diffuse tenderness to palpation, no rigidity, no rebound tenderness. BS hyperactive. EXTREMITIES: no deformity NEUROLOGICAL: no focal deficits PSYCHOLOGICAL: calm, cooperative, AAO x 3 LABORATORY DATA, IMAGING STUDIES, MICROBIOLOGY: Please see below. IMAGING: CT Abdomen/pelvis Liver: There is a diffuse decrease in hepatic parenchymal density, consistent with fatty infiltration. There are no focal liver lesions present. Gallbladder and bile ducts: The gallbladder is normal. Pancreas: The pancreas is normal. Spleen: The spleen is normal. Adrenals: The adrenal glands are normal. Kidneys and ureters: The kidneys are normal. Stomach and bowel: The stomach is normal. There is acute diverticulitis involving the distal sigmoid colon, with phlegmon and developing abscess. Small dots of extraluminal air are noted. Appendix: A normal appendix is identified. Intraperitoneal space: See above. Vasculature: The vasculature is normal. Lymph nodes: There are several small to mildly prominent retroperitoneal lymph nodes which are likely reactive. Bladder: The bladder is normal. Reproductive: The uterus is normal. Bones/joints: Unremarkable. No acute fracture. IMPRESSION: Acute diverticulitis with phlegmon and developing abscess. Localized extraluminal air is noted. DVT prophylaxis ordered?: Y ASSESSMENT AND PLAN: 49 yo F with a hx of hypothyroidism, GERD, HDL, asthma. Presented to ED with a 6 week hx of persistent abdominal pain. CT scan showing acute diverticulitis of distal sigmoid colon with phlegmon with developing abscess and localized extraluminal air. PROBLEMS: 1. Acute diverticulitis with abscess: WBC improving. IV flagyl. IV cipro. NPO. Surgery on consult. Imaging reviewed with Dr. Bynum. Recommends conservative management for now. Will follow. 2. Hypothyroid: patient confirms takes no medications. reports last TSH wnl. Check TSH in am. 3. HDL 4. GERD: ppi 5. asthma: duonebs prn DVT ppx: SCD VS, I&O, 24H, Fishbone Vital Signs/I&O Vital Signs Date Time Temp Pulse Resp B/P (MAP) Pulse Ox O2 Delivery O2 Flow Rate FiO2 03/01/20 02:47 50 18 101/54 (70) 97 Room Air 02/29/20 23:32 98.0 I&O- Last 24 Hours up to 6 AM 03/01/20 06:00 Intake Total 1500 ml Balance 1500 ml Laboratory Data 24H LABS Laboratory Tests 2 02/29/20 19:40: Immature Granulocyte % (Auto) 0.3, Neutrophils (%) (Auto) 63.4, Lymphocytes (%) (Auto) 25.8, Monocytes (%) (Auto) 7.5H, Eosinophils (%) (Auto) 2.3, Basophils (%) (Auto) 0.7, Neutrophils # (Auto) 9.3H, Lymphocytes # (Auto) 3.8, Monocytes # (Auto) 1.1H, Eosinophils # (Auto) 0.3, Basophils # (Auto) 0.1, Nucleated Red Blood Cells % (auto) 0.0, Anion Gap 5L, Glomerular Filtration Rate > 60.0, Calcium Level 8.5, Total Bilirubin 0.2, Direct Bilirubin < 0.1, Aspartate Amino Transf (AST/SGOT) 19, Alanine Aminotransferase (ALT/SGPT) 29, Alkaline Phosph atase 123H, Total Protein 7.1, Albumin 3.3, Albumin/Globulin Ratio 0.9L, Lipase 152 02/29/20 21:42: Urine Color COLORLESS, Urine Appearance CLEAR, Urine pH 5.0, Urine Specific Gra vity 1.044, Urine Protein NEGATIVE, Urine Glucose (UA) NEGATIVE, Urine Ketones NEGATIVE, Urine Blood 1+H, Urine Nitrite NEGATIVE, Urine Bilirubin NEGATIVE, Urine Urobilinogen 0.2, Urine Leukocyte Esterase NEGATIVE, Urine WBC (Auto) 0, Urine RBC (Auto) 1, Urine Hyaline Casts (Auto) 0, Urine Bacteria (Auto) NEGATIVE, Urine Squamous Epithelial Cells 0, Urine Sperm (Auto) 03/01/20 06:10: Nucleated Red Blood Cells % (auto) 0.0, Anion Gap 6L, Glomerular Filtration Rate > 60.0, Calcium Level 8.2L CBC/BMP Laboratory Tests 02/29/20 19:40 03/01/20 06:10 TOM ROMAN MD Mar 01, 2020 08:32
[2020-03-01] MEDS: CIPROFLOXACIN 400 MG in IV 1 EA IV SCH ×2 (10:06→21:14)
[2020-03-01 13:05] VITALS: BP 156/72
[2020-03-01] MEDS ORDERED: POLYVINYL ALCOHOL OPHTH SOLN 15 ML(LIQUITEARS) OU PRN (14:45)
[2020-03-01 16:00] VITALS: BP 144/78
[2020-03-01] MEDS ORDERED: ACETAMINOPHEN TAB 650MG DOSE (2X325MG) PO PRN (16:45)
[2020-03-01] MEDS ORDERED: MORPHINE 2 MG/ML 1ML VIAL (J2270) IV PRN (16:45)
[2020-03-01 20:00] VITALS: BP 155/71
[2020-03-01] MEDS: POLYVINYL ALCOHOL OPHTH SOLN 15 ML(LIQUITEARS) OU SCH (21:15)
[2020-03-02] VITALS: BP 125/62
[2020-03-02 04:00] VITALS: BP 135/66
[2020-03-02] MEDS: metroNIDAZOLE 500 MG in IV 1 EA IV SCH ×3 (06:27→21:47)
[2020-03-02 08:00] VITALS: BP 144/73
[2020-03-02] MEDS: CIPROFLOXACIN 400 MG in IV 1 EA IV SCH ×2 (08:55→23:01)
[2020-03-02] MEDS: POLYVINYL ALCOHOL OPHTH SOLN 15 ML(LIQUITEARS) OU SCH ×3 (08:55→20:12)
[2020-03-02 10:18] LABS: BASO # 0.1 10^3/uL (0.0-0.2); BASO % 0.8 % (0.0-1.0); EOS # 0.4 10^3/uL (0.0-0.5); EOS % 4.2 % (0.0-3.0); HEMATOCRIT 34.5 % (36.0-47.0); LYMPH # 2.5 10^3/uL (1.5-5.0); LYMPH % 27.8 % (24.0-44.0); MEAN CORPUSCULAR HEMOGLOBIN 26.8 pg (27.0-33.0); MEAN CORPUSCULAR HGB CONC 31.9 g/dl (32.0-36.5); MEAN CORPUSCULAR VOLUME 84.1 fl (80.0-96.0); MONO # 0.6 10^3/uL (0.0-0.8); MONO % 7.1 % (0.0-5.0); NEUTROPHILS # 5.3 10^3/uL (1.5-8.5); NEUTROPHILS % 59.8 % (36.0-66.0); PLATELET COUNT, AUTOMATED 312 10^3/uL (150-450); WHITE BLOOD COUNT 8.9 10^3/uL (4.0-10.0)
[2020-03-02] MEDS: NS 1,000 ML IV SCH (10:20)
[2020-03-02 10:43] LABS: ALBUMIN 2.9 GM/DL (3.2-5.2); ALT/SGPT 35 U/L (12-78); BILIRUBIN,TOTAL 0.4 MG/DL (0.2-1.0); BLOOD UREA NITROGEN 6 MG/DL (7-18); CALCIUM LEVEL 8.3 MG/DL (8.5-10.1); CARBON DIOXIDE LEVEL 22 MEQ/L (21-32); CHLORIDE LEVEL 111 MEQ/L (98-107); CREATININE FOR GFR 0.68 MG/DL (0.55-1.30); GLOMERULAR FILTRATION RATE > 60.0 (>58); GLUCOSE, FASTING 102 MG/DL (70-100); POTASSIUM SERUM 3.9 MEQ/L (3.5-5.1); SODIUM LEVEL 140 MEQ/L (136-145)
[2020-03-02 12:00] VITALS: BP 142/73
[2020-03-02] MEDS ORDERED: SLF 3 ML SYR IV PRN (12:00)
--- NOTE | 2020-03-02 13:43 | IPNPDOC ---
Date Seen The patient was seen on 03/02/20. Progress Note SUBJECTIVE: Patient seen and examined at bedside. She states that she is doing better. Abdominal pain has improved. No n/v/d. Denies CP, palpitations, SOB. OBJECTIVE PHYSICAL EXAMINATION: VITAL SIGNS: Please see below. GENERAL: comfortable in bed, lying flat HEENT: PERRLA CARDIOVASCULAR: RRR, normal S1S2. RESPIRATORY: CTAB. ABDOMINAL: mild diffuse tenderness to palpation, no rigidity, no rebound tenderness. BS + EXTREMITIES: no deformity NEUROLOGICAL: no focal deficits PSYCHOLOGICAL: calm, cooperative, AAO x 3 LABORATORY DATA, IMAGING STUDIES, MICROBIOLOGY: Please see below. IMAGING: CT Abdomen/pelvis Liver: There is a diffuse decrease in hepatic parenchymal density, consistent with fatty infiltration. There are no focal liver lesions present. Gallbladder and bile ducts: The gallbladder is normal. Pancreas: The pancreas is normal. Spleen: The spleen is normal. Adrenals: The adrenal glands are normal. Kidneys and ureters: The kidneys are normal. Stomach and bowel: The stomach is normal. There is acute diverticulitis involving the distal sigmoid colon, with phlegmon and developing abscess. Small dots of extraluminal air are noted. Appendix: A normal appendix is identified. Intraperitoneal space: See above. Vasculature: The vasculature is normal. Lymph nodes: There are several small to mildly prominent retroperitoneal lymph nodes which are likely reactive. Bladder: The bladder is normal. Reproductive: The uterus is normal. Bones/joints: Unremarkable. No acute fracture. IMPRESSION: Acute diverticulitis with phlegmon and developing abscess. Localized extraluminal air is noted. DVT prophylaxis ordered?: Y ASSESSMENT AND PLAN: 49 yo F with a hx of hypothyroidism, GERD, HDL, asthma. Presented to ED with a 6 week hx of persistent abdominal pain. CT scan showing acute diverticulitis of distal sigmoid colon with phlegmon with developing abscess and localized extraluminal air. PROBLEMS: 1. Acute diverticulitis with abscess: WBC normalized. IV flagyl. IV cipro. Discussed with Dr. Bynum. C/w IV abx. Advanced diet to FULL LIQUID. Monitor response. 2. Hypothyroid: patient confirms takes no medications. reports last TSH wnl. Check TSH in am. 3. GERD: ppi 4. asthma: duonebs prn 5. Hyperlipidemia: PCP monitor DVT ppx: SCD VS, I&O, 24H, Fishbone Vital Signs/I&O Vital Signs Date Time Temp Pulse Resp B/P (MAP) Pulse Ox O2 Delivery O2 Flow Rate FiO2 03/02/20 12:00 97.5 51 18 142/73 (96) 100 Room Air I&O- Last 24 Hours up to 6 AM 03/02/20 06:00 Intake Total 1825 ml Output Total 0 ml Balance 1825 ml Laboratory Data 24H LABS Laboratory Tests 2 03/02/20 09:43: Immature Granulocyte % (Auto) 0.3, Neutrophils (%) (Auto) 59.8, Lymphocytes (%) (Auto) 27.8, Monocytes (%) (Auto) 7.1H, Eosinophils (%) (Auto) 4.2H, Basophils (%) (Auto) 0.8, Neutrophils # (Auto) 5.3, Lymphocytes # (Auto) 2.5, Monocytes # (Auto) 0.6, Eosinophils # (Auto) 0.4, Basophils # (Auto) 0.1, Nucleated Red Blood Cells % (auto) 0.0, Anion Gap 7L, Glomerular Filtration Rate > 60.0, Calc ium Level 8.3L, Total Bilirubin 0.4#, Aspartate Amino Transf (AST/SGOT) 25, Alanine Aminotransferase (ALT/SGPT) 35, Alkaline Phosphatase 112, Total Protein 6.0L, Albumin 2.9L, Albumin/Globulin Ratio 0.9L CBC/BMP Laboratory Tests 03/02/20 09:43 TOM ROMAN MD Mar 02, 2020 13:43
[2020-03-02] MEDS: SLF 3 ML SYR IV SCH ×2 (14:29→21:51)
[2020-03-02 16:00] VITALS: BP 129/77
[2020-03-02 20:00] VITALS: BP 136/70
[2020-03-03] VITALS: BP 152/78
[2020-03-03 04:00] VITALS: BP 118/58
[2020-03-03] MEDS: metroNIDAZOLE 500 MG in IV 1 EA IV SCH (05:51)
[2020-03-03] MEDS: SLF 3 ML SYR IV SCH (05:52)
[2020-03-03 06:20] LABS: BASO # 0.1 10^3/uL (0.0-0.2); BASO % 0.6 % (0.0-1.0); EOS # 0.4 10^3/uL (0.0-0.5); EOS % 4.5 % (0.0-3.0); HEMATOCRIT 35.6 % (36.0-47.0); HEMOGLOBIN 11.4 g/dl (12.0-15.5); LYMPH # 3.1 10^3/uL (1.5-5.0); LYMPH % 33.3 % (24.0-44.0); MEAN CORPUSCULAR HEMOGLOBIN 26.5 pg (27.0-33.0); MEAN CORPUSCULAR VOLUME 82.8 fl (80.0-96.0); MONO # 0.8 10^3/uL (0.0-0.8); NEUTROPHILS % 53.3 % (36.0-66.0); PLATELET COUNT, AUTOMATED 340 10^3/uL (150-450); WHITE BLOOD COUNT 9.4 10^3/uL (4.0-10.0)
[2020-03-03 06:51] LABS: ALT/SGPT 29 U/L (12-78); BILIRUBIN,TOTAL 0.5 MG/DL (0.2-1.0); BLOOD UREA NITROGEN 6 MG/DL (7-18); CALCIUM LEVEL 8.6 MG/DL (8.5-10.1); CARBON DIOXIDE LEVEL 24 MEQ/L (21-32); CHLORIDE LEVEL 108 MEQ/L (98-107); CREATININE FOR GFR 0.69 MG/DL (0.55-1.30); GLOMERULAR FILTRATION RATE > 60.0 (>58); GLUCOSE, FASTING 103 MG/DL (70-100); POTASSIUM SERUM 3.8 MEQ/L (3.5-5.1); SODIUM LEVEL 138 MEQ/L (136-145); TOTAL PROTEIN 6.4 GM/DL (6.4-8.2)
[2020-03-03 08:00] VITALS: BP 158/70
[2020-03-03] MEDS: POLYVINYL ALCOHOL OPHTH SOLN 15 ML(LIQUITEARS) OU SCH (09:00)
[2020-03-03] MEDS: CIPROFLOXACIN 400 MG in IV 1 EA IV SCH (09:00)
[2020-03-03] MEDS ORDERED: CIPR-249 PO ×2 (10:37→10:39)
[2020-03-03] MEDS ORDERED: FLAG500T PO (10:39)
[2020-03-03] MEDS ORDERED: ACET-840 PO (10:59)
--- NOTE | 2020-03-03 11:02 | DS.PDOC ---
Discharge Summary General Date of Admission Mar 01, 2020 at 02:03 Date of Discharge 03/03/2020 Attending Physician: TOM ROMAN MD Specialist/Consultants Involve: Dwain Bynum Specialist/Consultants Involve Dr. Matamoros - Gastroenterology Discharge Summary PROCEDURES PERFORMED DURING STAY: None ADMITTING DIAGNOSES: 1. Acute Diverticulutis DISCHARGE DIAGNOSES: 1. Acute Diverticulitis 2. Hypothyroidism 3. GERD 4. Asthma 5. Hyperlipidemia COMPLICATIONS/CHIEF COMPLAINT: Diverticulitis Of Large Intestine W Abcess. HISTORY OF PRESENT ILLNESS: Patient is 49 year old female with PMH Hypothyroidism, GERD, HLD, and Asthma pr esents to the ER with complaints of persistent abdominal pain for 6 weeks. She reportedly was supposed to be seeing her PCP today for the problem but the appt was cancelled so she went to the ER. Pain had been intermittent for 6 weeks that is described as sharp in nature, generalized, worst at 10/10 that is associated with nausea briefly at one point but otherwise no other significant associations . She denies any noticable fever, chills, nausea, vomiting recently. Of note, patient state that she was told she had diverticulitis in the past about 6 years ago after being seen in the ER but did not get treated with antibiotics. She had seen Dr. Matamoros as outpatient and had a colonoscopy done then. Patient currently is comfortable and does not complain of any discomfort at all until her abdomen is palpated. CT scan done in ER shows findings consistent with acute diverticulitis of the distal sigmoid colon with phlegmon and developing abscess and small localized extraluminal air. HOSPITAL COURSE: Ms. Flores was admitted for treatment of acute diverticulitis. She was kept NPO, and treated with IV ciprofloxacin and IV flagyl 2 days. General Surgery was consulted. Case was discussed and CT imaging reviewed with Dr. Bynum given the presence of a developing phlegmon/absess and small dots of extralumenal air. Decision was made to continue with conservative management given sufficient containment of air/abscess. The patient improved after 1 day of treatment, and her diet was advance to full liquid. She was afebrile, pain free and had resolution of leukocytosis on discharge. She was given an additional 7 day course of PO cipro and flagyl and was instructed to follow up with her primary care provider as well as general surgery and gastroenterology specialists. DISCHARGE MEDICATIONS: Please see below. ALLERGIES: Please see below. PHYSICAL EXAMINATION ON DISCHARGE: VITAL SIGNS: Please see below. GENERAL: comfortable in bed, lying flat HEENT: PERRLA CARDIOVASCULAR: RRR, normal S1S2. RESPIRATORY: CTAB. ABDOMINAL: no pain to palpation, no rigidity, no rebound tenderness. BS+. No masses palpated. EXTREMITIES: no deformity NEUROLOGICAL: no focal deficits PSYCHOLOGICAL: calm, cooperative, AAO x 3 LABORATORY DATA: Please see below. IMAGING: CT Abdomen/pelvis 02/29/20 Liver: There is a diffuse decrease in hepatic parenchymal density, consistent with fatty infiltration. There are no focal liver lesions present. Gallbladder and bile ducts: The gallbladder is normal. Pancreas: The pancreas is normal. Spleen: The spleen is normal. Adrenals: The adrenal glands are normal. Kidneys and ureters: The kidneys are normal. Stomach and bowel: The stomach is normal. There is acute diverticulitis involving the distal sigmoid colon, with phlegmon and developing abscess. Small dots of extraluminal air are noted. Appendix: A normal appendix is identified. Intraperitoneal space: See above. Vasculature: The vasculature is normal. Lymph nodes: There are several small to mildly prominent retroperitoneal lymph nodes which are likely reactive. Bladder: The bladder is normal. Reproductive: The uterus is normal. Bones/joints: Unremarkable. No acute fracture. IMPRESSION: Acute diverticulitis with phlegmon and developing abscess. Localized extraluminal air is noted. PROGNOSIS: favorable, assuming treatment of diverticulitis pending completion full course of ABX, and appropriate specialist f/u. ACTIVITY: As tolerated. DIET: Low Fiber DISCHARGE PLAN: DC home with PCP and specialist follow up (General Surgery, Gastroenterology) DISPOSITION: DC home with self care. Can return to work in 2 days, assuming no severe abdominal pain, fevers, chills. DISCHARGE INSTRUCTIONS: 1. Complete 7 additional days of PO ciproflaxacin 500 mg TAB every 12 hours PO, and Flagyl 500 mg every 8 hours PO 2. Follow up with PCP within 7 days. 3 Follow up with General Surgery within 7 days if possible 4. Follow up with GI within 14 days if possible. ITEMS TO FOLLOWUP ON ON OUTPATIENT: 1. Complete antibiotics 2. Resolution of pain 3. F/u with Gen Surg and GI. May require follow up colonoscopy. 4. TSH 4.98, patient reported a hx of hypothyroidism but states no medications at this time DISCHARGE CONDITION: Stable TIME SPENT ON DISCHARGE: Greater than 30 minutes. Vital Signs/I&Os Vital Signs Date Time Temp Pulse Resp B/P (MAP) Pulse Ox O2 Delivery O2 Flow Rate FiO2 03/03/20 08:00 98.3 61 20 158/70 (99) 97 Room Air I&O- Last 24 Hours up to 6 AM 03/03/20 06:00 Intake Total 2430 ml Output Total 0 ml Balance 2430 ml Laboratory Data Labs 24H Laboratory Tests 2 03/03/20 05:42: Immature Granulocyte % (Auto) 0.3, Neutrophils (%) (Auto) 53.3, Lymphocytes (%) (Auto) 33.3, Monocytes (%) (Auto) 8.0H, Eosinophils (%) (Auto) 4.5H, Basophils (%) (Auto) 0.6, Neutrophils # (Auto) 5.0, Lymphocytes # (Auto) 3.1, Monocytes # (Auto) 0.8, Eosinophils # (Auto) 0.4, Basophils # (Auto) 0.1, Nucleated Red Blood Cells % (auto) 0.0, Anion Gap 6L, Glomerular Filtration Rate > 60.0, Calcium Level 8.6, Total Bilirubin 0.5, Aspartate Amino Transf (AST/SGOT) 18, Alanine Aminotransferase (ALT/SGPT) 29, Alkaline Phosphatase 111, Total Protein 6.4, Albumin 3.0L, Albumin/Globulin Ratio 0.9L, Thyroid Stimulating Hormone (TSH) 4.980H CBC/BMP Laboratory Tests 03/03/20 05:42 Discharge Medications Scheduled Ascorbic Acid (Vitamin C) 500 Mg Tab, 500 MG PO DAILY, (Reported) Ciprofloxacin HCl (Cipro) 500 Mg Tablet, 500 MG PO Q12H Ergocalciferol (Vitamin D2) (Vitamin D2) 50 Mcg Capsule, 2,000 UNIT PO DAILY, (Reported) Guaifenesin (Mucinex) 600 Mg Tab.er.12h, 600 MG PO DAILY, (Reported) Loratadine (Claritin) 10 Mg Cap, 10 MG PO DAILY, (Reported) Metronidazole (Flagyl) 500 Mg Tablet, 500 MG PO Q8H for 7 days Omeprazole (Omeprazole) 40 Mg Capsule.dr, 40 MG PO DAILY, (Reported) Vitamin E (Vitamin E) 1,000 Unit Capsule, 1,000 UNIT PO 3XW, (Reported) SHELLIE, TUESDAY, TUESDAY Scheduled PRN Albuterol Sulfate (Ventolin Hfa) 108 Mcg/Act Aer, 108 MCG IN Q4HP PRN for SHORTNESS OF BREATH, (Reported) USE WITH SPACER Allergies Coded Allergies: No Known Allergies (Unverified , 02/29/20) TOM ROMAN MD Mar 03, 2020 11:02
--- NOTE | 2020-03-12 07:44 | CR ---
DATE: 03/01/2020 REASON FOR CONSULTATION: Sigmoid diverticulitis with contained perforation. HISTORY OF PRESENT ILLNESS: The patient is a pleasant 49-year-old woman who reports that about 5 years ago she had an episode that was diagnosed as diverticulitis. She was seen at [facility] and started on antibiotics but did not require hospitalization. Since about January 11, she reports that she has had generally loose bowel movements, occasionally becoming quite loose and even difficult to control. She has had some crampy abdominal pains intermittently. On occasion she has had some leakage of stool, and she has called into work eight times over the last 6 weeks or so because of abdominal pain or diarrhea. This has been fairly stable, but on February 28 after a bowel movement she noted markedly increased pain in the lower abdomen. This became more diffuse in the lower abdomen and she presented first to the [facility] and was then referred to the emergency department for evaluation. In the emergency room (ER) she had some laboratory studies obtained, and a CT scan of the abdomen and pelvis was done. This revealed inflammatory changes in the sigmoid colon with several small air bubbles in the soft tissues adjacent to the region of the rectosigmoid. She was admitted by the hospitalist, and I have been asked to consult regarding any need for surgical intervention. Patient reports that she had an esophagogastroduodenoscopy (EGD) and colonoscopy some time greater than 5 years ago. She has not recently had any rectal bleeding. She does feel somewhat better since being admitted to the hospital and started on antibiotics yesterday. ALLERGIES: Patient denies any known drug allergies. MEDICATIONS: Patient reports that the only medications she is actually taking are loratadine and omeprazole. She apparently had been prescribed simvastatin, gabapentin, and Flexeril but discontinued these. Her medical record says she is also taking some other vitamins, including vitamin D and vitamin C, and uses an albuterol inhaler as needed. It is unclear when she last used this. SURGICAL HISTORY: Significant for: 1. Laryngotomy tubes. 2. She has had a tonsillectomy. 3. She reports having had an endometrial ablation as well as some sort of bladder suspension. MEDICAL HISTORY: 1. Patient reports a history of asthma. 2. She apparently has been diagnosed with hypercholesterolemia and some gastroesophageal reflux disease. 3. She did have diverticulitis somewhere around 5 years ago. SOCIAL HISTORY: Patient is employed at the [employer]. She apparently does smoke a quarter to a half pack of cigarettes per day and drinks some occasional alcohol. FAMILY HISTORY: Significant for breast cancer in her mother. REVIEW OF SYSTEMS: Shows no history of chest pain or palpitations. She denies shortness of breath, wheezing, or sputum production. She has had no melena or hematochezia. She denies any dysuria or hematuria. She has had no new bone or joint injuries. She denies any history of deep venous thrombosis (DVT) or pulmonary embolus. She has no history of seizures or strokes. PHYSICAL EXAMINATION: Reveals a woman with a degree of obesity, lying quietly on the hospital bed. She is alert and oriented. Skin is warm and dry. The neck is supple without mass or bruit. Heart exam shows a regular rhythm, and she is certainly not tachycardic. The lungs are clear. The abdomen is obese. She has bowel sounds present. There is no evident hernia. There is no tympany to percussion and no tenderness to percussion. Palpation reveals the abdomen to be soft throughout. In the left lower quadrant there is some mild tenderness to palpation, which is somewhat worse very low in the left lower quadrant. LABORATORY STUDIES: Yesterday evening showed a white count of 15,000 with a hemoglobin of 12, hematocrit 37, and a platelet count of 377,000. Her differential count was normal. Today her white count is 10 with a hematocrit of 12, hematocrit 37, and a platelet count of 337. Her chemistry profile yesterday showed a sodium of 135, potassium 3.9, chloride 109, CO2 of 21, BUN of 14, creatinine 0.7, and a glucose of 99. Her liver function tests are not significantly abnormal. Alkaline phosphatase is minimally elevated at 123. She had a lipase that was normal at 152. Her chemistries today are not significantly altered from yesterday. She had a urinalysis that was not suggestive of an infection. She had a CT scan of the abdomen and pelvis yesterday that I reviewed personally. The images reveal thickening and inflammation of her sigmoid colon. She does have evidence for diverticulosis in the distal colon. In the distal portion of the inflamed sigmoid, approximately at the rectosigmoid, there are four small air bubbles noted in the tissues adjacent to the colon, consistent with a contained small perforation. There is no evidence of any free air in the abdomen, and there is no free fluid in the pelvis. IMPRESSION: 1. Acute sigmoid diverticulitis with contained perforation. 2. Diarrhea for approximately 4-6 weeks of unclear etiology but likely not representing prolonged diverticulitis. 3. Hyperlipidemia. 4. Gastroesophageal reflux. 5. Asthma. 6. Obesity. RECOMMENDATIONS: At this point, I am hopeful that the patient will improve with only antibiotics. My experience has been that most people with this very limited amount of air in the pericolonic tissues will heal with antibiotics alone. Unfortunately, a small percentage will have evidence for increasing or persistent leakage and can even develop a free perforation through this area. I do think it is reasonable to keep her nothing by mouth other than perhaps a few ice chips, at least until tomorrow, but if she is doing well tomorrow she could be placed on clear liquids. If she develops significantly increased pain, then a repeat CT scan of the pelvis may be helpful to look for evidence of any worsened signs of perforation. The month-long episode or 6-week long episode of loose stools and diarrhea is unclear as to the cause. I would not expect her to have had lingering diverticulitis. Perhaps this was some other issue, either dietary or infectious. I will leave any further evaluation of this to the hospitalist service. I will follow her for the diverticulitis. ASPEN
--- NOTE | 2020-04-18 13:05 | IPN ---
DATE: 03/02/2020 HISTORY: Patient is a 49-year-old woman who was admitted by the hospitalist with sigmoid diverticulitis with a few small contained air bubbles in the mesentery about the level of the rectosigmoid. She has been continued on ciprofloxacin and Flagyl since her admission on 02/29/2020. VITAL SIGNS: Show that she has been afebrile since admission. Her pulse is in the 50s. Blood pressure is generally within the normal range. Intake and output show that yesterday she had 1600 in and she has no output recorded, but today she has several voids and several small loose bowel movements recorded but not quantified. PHYSICAL EXAMINATION: Patient is sitting up in her bed having had some clear liquids this morning. She denies any nausea or vomiting. She is not having much in the way of discomfort. She does report a little tenderness way down low in the left lower quadrant. Heart exam shows a regular rate and rhythm. The lungs are clear. Her abdomen is obese but soft throughout with only some very mild tenderness low in the left lower quadrant. LABORATORY STUDIES: Include a CBC showing a white count of 9, hemoglobin of 11, hematocrit 34, and a platelet count of 312,000. Differential count is basically normal. Her chemistry profile shows a sodium of 140, potassium 3.9, chloride 111, CO2 of 22, BUN of 6, creatinine 0.7, and a glucose of 102. Liver function tests are normal. IMPRESSION: Patient appears to be doing well with decreasing discomfort. She was started on clears this morning and appears to be tolerating those so far. PLAN: Patient will be advanced to full liquids. I will saline lock her IV at this point. I suspect that she will be ready for discharge tomorrow on oral antibiotics. ASPEN
== END 2020-03-03 14:45 | disposition home or self-care (01) | DRG 244 ==
LOC: M ED 18:57 → M ED INP 03-01 02:03 → ENRESERV 03-01 12:07 → M PCU 03-01 13:08
PROVIDERS: ADMIT Student in an Organized Health Care Education/Training Program; ATTEND Student in an Organized Health Care Education/Training Program
DX: K57.32 Diverticulitis of large intestine without perforation or abscess without bleeding (principal); E03.9 Hypothyroidism, unspecified; K21.9 Gastro-esophageal reflux disease without esophagitis; J45.909 Unspecified asthma, uncomplicated; E78.5 Hyperlipidemia, unspecified; Z79.899 Other long term (current) drug therapy; F17.210 Nicotine dependence, cigarettes, uncomplicated; E66.9 Obesity, unspecified

== ENCOUNTER → 2020-06-12 | Outpatient (CLI) | payer OTHER ==
[~2020-06-12] MED LIST changes: +ACET-840 PO; +CIPR-249 PO; +FLAG500T PO; +MUCI600T31 PO; +OMEP-221 PO; +VITA100012 PO; +VITA200048 PO
--- NOTE | 2020-06-12 09:44 | REPMRS ---
Patient History The patient states she had a clinical breast exam in 06/29 Family history of breast cancer at age 55 in mother, breast cancer at age 50 or over in maternal aunt, ovarian cancer under age 50 in maternal cousin. Digital Woman Screen Mammo: June 12, 2020 - Exam #: [id number] Bilateral CC and MLO view(s) were taken. Technologist: Cassi Paula, Technologist Prior study comparison: October 12, 2018, bilateral digital woman screen mammo performed at [facility]. October 04, 2017, digital woman screen mammo performed at [facility]. July 01, 2016, digital woman screen mammo performed at [facility]. FINDINGS: There are scattered fibroglandular densities. The Volpara volumetric breast density category is:B. There is a grouping of new punctate calcifications in the superior aspect of the right breast at approximately 11 o'clock position anterior 3rd. These merit further evaluation. There has been no other change in the appearance of the mammogram from the prior studies. There is a mild amount of scattered fibroglandular density which is fairly symmetric. 3-D tomosynthesis shows no additional findings. Assessment: BI-RADS/ACR category 0 mammogram, Incomplete: Need additional imaging evaluation and/or prior mammograms for comparison. Recommendation Special view mammogram of the right breast. This patient's [facility] Lifetime Breast Cancer Risk is estimated at 21.2 %. Annual screening Breast MRI scanniing is recommended for patient's whose lifetime risk assessment is over 20%. This mammogram was interpreted with the aid of an FDA-approved computer-aided dectection system. Electronically Signed By: Hung Tejada MD 06/12/20 0943
== END ==
LOC: M WHC 08:51
PROVIDERS: ATTEND Family Medicine Addiction Medicine
DX: Z12.31 Encounter for screening mammogram for malignant neoplasm of breast (principal); Z80.3 Family history of malignant neoplasm of breast; R92.1 Mammographic calcification found on diagnostic imaging of breast

== ENCOUNTER → 2020-07-02 | Outpatient (CLI) | payer OTHER ==
--- NOTE | 2020-07-02 15:16 | REP ---
INDICATION: ADD VIEWS RIGHT BREAST. COMPARISON: 06/12/2020 as well as other prior exams. TECHNIQUE: Multiple magnification views right breast performed. FINDINGS: In the anterior right breast upper outer aspect the recent mammogram showed possible new tiny calcifications. Today's magnification views show some scattered punctate calcifications in this general region with no suspicious clusters of microcalcifications. There is no one area that is more suspicious than any other. Findings appear benign. IMPRESSION: BIRADS/ACR category 2 benign. Scattered tiny punctate calcifications anteriorly in the right breast are not clustered in a suspicious manner. The findings appear benign. This mammogram was interpreted with the aid of an FDA-approved computer-aided detection system. The patient letter being requested is M 1. RECOMMENDATION: Repeat screening mammography recommended 1 year (for women over 40). <Electronically signed by Chadwick Ritchie > 07/02/20 [id number]
== END ==
LOC: M WHC 14:26
PROVIDERS: ATTEND Family Medicine Addiction Medicine
DX: R92.8 Other abnormal and inconclusive findings on diagnostic imaging of breast (principal)
CPT/HCPCS: 77065; G0279

== ENCOUNTER → 2020-08-11 | Outpatient (CLI) | payer SELFPAY ==
[~2020-08-11] MED LIST changes: +GABA-282 PO; -GABA-843 PO
== END ==
LOC: M LABSMTC 11:18
PROVIDERS: ATTEND Pediatrics
DX: Z20.822 Contact with and (suspected) exposure to COVID-19 (principal)

== ENCOUNTER → 2020-08-21 | Outpatient (REF) | payer OTHER ==
[2020-08-21 19:07] LABS: APPEARANCE, URINE CLEAR (CLEAR); BACTERIA, URINE AUTO NEGATIVE (NEGATIVE); BILIRUBIN, URINE AUTO NEGATIVE (NEGATIVE); BLOOD, URINE BLOOD 1+ (NEGATIVE); COLOR, URINE YELLOW (YELLOW); GLUCOSE, URINE (UA) AUTO NEGATIVE (NEGATIVE); KETONE, URINE AUTO NEGATIVE (NEGATIVE); LEUKOCYTE ESTERASE, URINE AUTO NEGATIVE (NEGATIVE); MUCUS, URINE SMALL (NEGATIVE); NITRITE, URINE AUTO NEGATIVE (NEGATIVE); PROTEIN, URINE AUTO NEGATIVE (NEGATIVE); RBC, URINE AUTO 8 /HPF (0-3); SPECIFIC GRAVITY URINE AUTO 1.018 (1.002-1.035); SQUAMOUS EPITHELIAL CELL UR AU 0 /HPF (0-6); UROBILINOGEN, URINE AUTO 0.2 mg/dL (0.0-2.0); WBC, URINE AUTO 0 /HPF (0-3)
== END ==
LOC: M SMT 17:04
PROVIDERS: ATTEND Nurse Practitioner Women's Health
DX: R39.15 Urgency of urination (principal)

== ENCOUNTER → 2020-09-11 | Outpatient (CLI) | payer OTHER ==
[~2020-09-11] MED LIST changes: +ISOVUE-370 76% 100ML VIAL As Ordered ONE
--- NOTE | 2020-09-11 14:02 | REP ---
INDICATION: OTHER MICROSCOPIC HEMATURIA. COMPARISON: 02/29/2020 TECHNIQUE: Axial precontrast, contrast-enhanced and delayed images from the lung bases to the pubic symphysis using 100 cc Isovue 370 intravenous contrast material. Coronal and sagittal reformations obtained. This CT examination was performed using the following dose reduction techniques: Automated exposure control, adjustment of mA and/or kv according to the patient's size, and the use of iterative reconstruction technique. FINDINGS: Bilateral kidneys/ureters and bladder are normal in all phases of evaluation. Liver, spleen, pancreas, gallbladder, and bilateral adrenal glands are normal. The enteric system including stomach, small, and large bowel appears normal. No evidence for obstruction or acute inflammatory process. Normal terminal ileum and appendix are identified in the right lower quadrant. Sigmoid diverticulosis noted without acute diverticulitis. Pelvis demonstrates normal bladder and age-appropriate uterus/right adnexa along with 4.2 cm left ovarian cyst. No ascites. No free air. No intraperitoneal or retroperitoneal adenopathy. Abdominal aorta and vasculature appear normal. Chronic bilateral L5 spondylolysis with 12 mm chronic spondylolisthesis, endplate sclerosis and disc space obliteration noted. IMPRESSION: 4.2 cm left ovarian cyst. Normal appearance to the urinary tract system. Diverticulosis without acute diverticulitis. Chronic L5 spondylolysis and spondylolisthesis. <Electronically signed by Tr Prieto > 09/11/20 [id number]
== END ==
LOC: M RAD 13:09
PROVIDERS: ATTEND Nurse Practitioner Women's Health
DX: R31.9 Hematuria, unspecified (principal)
CPT/HCPCS: 74178; Q9967

== ENCOUNTER 2020-11-05 10:00 | Emergency (ER) | payer OTHER ==
[~2020-11-05] VITALS: Ht 154.9 cm; Wt 84.5 kg
[~2020-11-05 10:00] MED LIST changes: -ISOVUE-370 76% 100ML VIAL As Ordered ONE
[2020-11-05] MEDS ORDERED: BUPR150T12 (10:46)
[2020-11-05] MEDS ORDERED: KETOROLAC 30 MG/ML 1ML VIAL IV ONE (11:30)
[2020-11-05] MEDS ORDERED: ONDANSETRON 4MG/2ML VIAL IV ONE (11:30)
[2020-11-05 11:31] LABS: BASO # 0.1 10^3/uL (0.0-0.2); BASO % 0.7 % (0.0-1.0); EOS # 0.4 10^3/uL (0.0-0.5); EOS % 3.1 % (0.0-3.0); HEMATOCRIT 40.5 % (36.0-47.0); HEMOGLOBIN 13.1 g/dl (12.0-15.5); LYMPH # 3.8 10^3/uL (1.5-5.0); LYMPH % 31.7 % (24.0-44.0); MEAN CORPUSCULAR HGB CONC 32.3 g/dl (32.0-36.5); MEAN CORPUSCULAR VOLUME 83.5 fl (80.0-96.0); MONO # 0.8 10^3/uL (0.0-0.8); MONO % 6.4 % (2.0-8.0); NEUTROPHILS % 57.4 % (36.0-66.0); PLATELET COUNT, AUTOMATED 357 10^3/uL (150-450); RED BLOOD COUNT 4.85 10^6/uL (4.00-5.40); WHITE BLOOD COUNT 12.1 10^3/uL (4.0-10.0)
[2020-11-05 11:34] LABS: ALBUMIN 3.3 GM/DL (3.2-5.2); ALT/SGPT 23 U/L (12-78); BILIRUBIN,DIRECT < 0.1 MG/DL (0.0-0.2); BILIRUBIN,TOTAL 0.5 MG/DL (0.2-1.0); LIPASE 113 U/L (73-393); TOTAL PROTEIN 6.8 GM/DL (6.4-8.2)
[2020-11-05] MEDS ORDERED: PANTOPRAZOLE 40MG VIAL (C9113 PER 1) IV ONE (12:40)
[2020-11-05 12:42] LABS: AMPHETAMINES LEVEL URINE NEGATIVE (NEGATIVE); BARBITURATES URINE NEGATIVE (NEGATIVE); BENZODIAZEPINES URINE NEGATIVE (NEGATIVE); CANNABINOIDS URINE POSITIVE (NEGATIVE); COCAINE METABOLITE URINE POSITIVE (NEGATIVE); METHADONE URINE NEGATIVE (NEGATIVE); OPIATES URINE NEGATIVE (NEGATIVE); PHENCYCLIDINE URINE NEGATIVE (NEGATIVE)
[2020-11-05] MEDS ORDERED: ISOVUE-370 76% 100ML VIAL As Ordered ONE (13:08)
--- NOTE | 2020-11-05 13:37 | REP ---
INDICATION: upper abd pain. COMPARISON: 09/11/2020 TECHNIQUE: Standard helical technique after the intravenous administration of 100 cc Isovue 370 FINDINGS: The lung bases are unchanged. There are no pleural or pericardial effusions. The liver, gallbladder, spleen, pancreas, adrenal glands, are within normal limits and unchanged. The abdominal aorta para-regions are within normal limits and unchanged. There is colonic diverticulosis status quo. There is mild dilatation of the base of the appendix which measures 1.1 cm, however, there is no abnormal fatty infiltration of the mesoappendix. The bowel loops and the mesenteries are otherwise unremarkable. There is no free fluid or free air. There is no significant change in the appearance of the imaged osseous structures. Note is again made of a grade 2/3 L5 upon S1 spondylolisthesis secondary to bilateral L5 spondylolysis. Disc space narrowing and endplate sclerosis is also seen at that level status quo. IMPRESSION: 1. The base of the appendix is dilated which represents a change from the prior exam, however, there is no concomitant fatty infiltration of the mesoappendix or free fluid in the right pericolic gutter. This needs to be correlated clinically. 2. Colonic diverticulosis without evidence of diverticulitis. 3. Chronic spinal changes as described above. <Electronically signed by Ac Espinosa > 11/05/20 [id number]
[2020-11-05] MEDS ORDERED: ONDA4TAB6 PO (13:56)
[2020-11-05] MEDS ORDERED: CARA1TAB6 PO (13:56)
[2020-11-05 14:03] VITALS: BP 148/67
--- NOTE | 2020-11-05 23:03 | ECGEPIP ---
[facility] - ED Test Date: 2020-11-05 Pat Name: JOSTIN HARRIS Department: Room: - Gender: Female Coding Clerk: SABIHA : 1970 Requested By: KIKI ALCALA PA-C Order Number: [id number] Reading MD: Hesham Juan Measurements Intervals [place] Rate: 53 P: -5 MO: 194 QRS: 43 QRSD: 84 T: 39 QT: 438 QTc: 410 Interpretive Statements Sinus bradycardia SIMILAR TO 11/05/15 Electronically Signed on 11-05-2020 23:03:33 EDT by Hesham Juan
--- NOTE | 2020-11-08 06:47 | ED PDOC ---
Post-Departure Follow-Up ct abd/p faxed to dr morales for fu Eric Delgadillo MD November 08, 2020 06:47
== END 2020-11-05 14:08 | disposition home or self-care (01) ==
LOC: M ED 10:00
DX: R10.12 Left upper quadrant pain (principal); J45.909 Unspecified asthma, uncomplicated; E03.9 Hypothyroidism, unspecified; E78.5 Hyperlipidemia, unspecified; F33.9 Major depressive disorder, recurrent, unspecified; F41.9 Anxiety disorder, unspecified; D50.9 Iron deficiency anemia, unspecified; M41.9 Scoliosis, unspecified; Z78.0 Asymptomatic menopausal state; Z87.442 Personal history of urinary calculi; Z79.899 Other long term (current) drug therapy; Z91.040 Latex allergy status; F17.210 Nicotine dependence, cigarettes, uncomplicated; F12.20 Cannabis dependence, uncomplicated
CPT/HCPCS: 74177; 80047; 80076; 80307; 81001; 83690; 84702; 85025; 93005; 96374; 96375; 99284; C9113; J1885; J2405; Q9967

== ENCOUNTER → 2021-04-30 | Outpatient (CLI) | payer OTHER ==
[~2021-04-30] MED LIST changes: +BUPR150T12; +CARA1TAB6 PO; +ONDA4TAB6 PO
--- NOTE | 2021-04-30 11:36 | REP ---
INDICATION: LT OVARIAN CYST COMPARISON: None. TECHNIQUE: Transabdominal pelvic ultrasound followed by transvaginal examination for better evaluation of the endometrium and adnexa with color Doppler evaluation of the ovaries. FINDINGS: Bladder is unremarkable and measures 9.2 x 4.0 x 8.1 cm. Normal anteverted uterus measures 7.4 x 3.0 x 3.9 cm. The endometrial complex measures 3.3 mm thickness. No discrete uterine or endometrial abnormalities are appreciated. Bilateral ovaries are normal in appearance and vascularity without evidence for torsion. Right ovary measures 2.2 x 2.0 x 1.8 cm; R I = 0.64. Left ovary measures 3.5 x 2.0 x 3.0 cm with 1.6 cm dominant follicle/physiologic cyst; R I = 0.50. No pelvic fluid or adnexal mass lesion. IMPRESSION: Suspected dominant follicle in the left ovary. If the patient remains symptomatic consider re-evaluation in 4-6 weeks to evaluate for resolution. <Electronically signed by Tr Prieto > 04/30/21 [id number]
== END ==
LOC: M RAD 10:49
PROVIDERS: ATTEND Physician Assistant
DX: N83.202 Unspecified ovarian cyst, left side (principal)

== ENCOUNTER 2021-10-22 12:03 | Day surgery (SDC) | payer OTHER ==
[~2021-10-22] VITALS: Ht 154.9 cm; Wt 86.4 kg
[~2021-10-22 12:03] MED LIST changes: +ALBU8.5H INH; +IBUP-1114 PO; +LORA-674 PO; -MOME50SP; +NASO50SP3; +NS 1,000 ML IV ONE; -OMEP-221 PO; +OMEP40CA5 PO
[2021-10-22] MEDS ORDERED: LIDOCAINE 2% 100MG/5ML SDV (FOR ANES.) As Ordered ONE (14:37)
[2021-10-22] MEDS ORDERED: propofoL 200 MG/20 ML VIAL As Ordered ONE ×2 (14:37→14:38)
[2021-10-22] MEDS ORDERED: ALBUTEROL SULFATE 2.5 MG/0.5 ML INH NEB SOLN As Ordered ONE (15:03)
[2021-10-22 15:23] VITALS: BP 107/60
== END 2021-10-22 15:25 | disposition home or self-care (01) ==
LOC: M OPP 12:03
PROVIDERS: ATTEND Internal Medicine Gastroenterology
DX: K63.5 Polyp of colon (principal); K57.30 Diverticulosis of large intestine without perforation or abscess without bleeding; K64.8 Other hemorrhoids; K58.1 Irritable bowel syndrome with constipation; K58.2 Mixed irritable bowel syndrome; R11.10 Vomiting, unspecified; R12 Heartburn; Z79.51 Long term (current) use of inhaled steroids; Z79.83 Long term (current) use of bisphosphonates; Z79.899 Other long term (current) drug therapy; Z91.040 Latex allergy status; F17.210 Nicotine dependence, cigarettes, uncomplicated; Z86.2 Personal history of diseases of the blood and blood-forming organs and certain disorders involving the immune mechanism; Z87.19 Personal history of other diseases of the digestive system

== ENCOUNTER → 2021-12-03 | Outpatient (CLI) | payer OTHER ==
[~2021-12-03] MED LIST changes: -NS 1,000 ML IV ONE
== END ==
LOC: M WHC 11:03
PROVIDERS: ATTEND Family Medicine Addiction Medicine
DX: Z12.31 Encounter for screening mammogram for malignant neoplasm of breast (principal)

== ENCOUNTER → 2022-03-18 | Outpatient (REF) | payer OTHER ==
[~2022-03-18] MED LIST changes: +ANEC4CRE3 TOP; +LINZ145C
[2022-03-18 19:47] LABS: APPEARANCE, URINE MANUAL CLEAR (CLEAR); COLOR, URINE MANUAL YELLOW (YELLOW); SPECIFIC GRAVITY,URINE MANUAL 1.025 (1.002-1.035)
[2022-03-18 19:48] LABS: BILIRUBIN, URINE MANUAL NEGATIVE (NEGATIVE); BLOOD URINE MANUAL POSITIVE (NEGATIVE); GLUCOSE, URINE (UA) MANUAL NEGATIVE (NEGATIVE); KETONE, URINE MANUAL NEGATIVE (NEGATIVE); LEUKOCYTE ESTERASE, URINE MAN NEGATIVE (NEGATIVE); NITRITE, URINE MANUAL NEGATIVE (NEGATIVE); PROTEIN, URINE MANUAL NEGATIVE (NEGATIVE); UROBILINOGEN, URINE MANUAL NORMAL (NORMAL)
[2022-03-18 19:55] LABS: BACTERIA, URINE SMALL AMOUNT; HYALINE CAST, URINE NONE SEEN /lpf (0-1); MUCUS, URINE SMALL AMOUNT (NEGATIVE); SQUAMOUS EPITHELIAL CELL URINE SMALL AMOUNT /hpf (SMALL AMT); WBC, URINE NONE SEEN /hpf (0-3)
== END ==
LOC: M SMT 12:46
PROVIDERS: ATTEND Nurse Practitioner Women's Health
DX: R31.29 Other microscopic hematuria (principal)

== ENCOUNTER 2022-05-22 07:30 | Emergency (ER) | payer OTHER ==
[~2022-05-22] VITALS: Ht 154.9 cm; Wt 85.3 kg
[2022-05-22] MEDS ORDERED: FLUORESCEIN OPHTH 1 MG STRIP OD ONE (11:05)
[2022-05-22] MEDS ORDERED: PROPARACAINE 0.5% OPHTH SOL 15ML OD ONE (11:05)
[2022-05-22] MEDS ORDERED: ERYTHROMYCIN OPHTH OINT OD ONE (11:40)
[2022-05-22] MEDS ORDERED: ERYT5OIN25 OD (11:41)
[2022-05-22 11:52] VITALS: BP 138/80
== END 2022-05-22 11:55 | disposition home or self-care (01) ==
LOC: M ED 07:30
DX: S05.01XA Injury of conjunctiva and corneal abrasion without foreign body, right eye, initial encounter (principal); Z91.040 Latex allergy status; Z79.51 Long term (current) use of inhaled steroids; Z79.899 Other long term (current) drug therapy

== ENCOUNTER 2022-06-13 14:32 | Inpatient (IN) | payer OTHER ==
[~2022-06-13] VITALS: Ht 154.9 cm; Wt 83.4 kg
[~2022-06-13 14:32] MED LIST changes: -BUPR150T12; +BUPR150T12 PO; +ERYT5OIN25 OD
[2022-06-13] MEDS ORDERED: MELO15TA28 PO (14:49)
[2022-06-13 15:35] LABS: BASO # 0.1 10^3/uL (0.0-0.2); BASO % 0.3 % (0.0-1.0); EOS # 0.3 10^3/uL (0.0-0.5); EOS % 1.6 % (0.0-3.0); HEMATOCRIT 37.8 % (36.0-47.0); HEMOGLOBIN 12.4 g/dl (12.0-15.5); LYMPH # 2.4 10^3/uL (1.5-5.0); LYMPH % 13.7 % (24.0-44.0); MEAN CORPUSCULAR HEMOGLOBIN 27.6 pg (27.0-33.0); MEAN CORPUSCULAR HGB CONC 32.8 g/dl (32.0-36.5); MONO % 5.9 % (2.0-8.0); NEUTROPHILS # 13.6 10^3/uL (1.5-8.5); NEUTROPHILS % 78.2 % (36.0-66.0); PLATELET COUNT, AUTOMATED 335 10^3/uL (150-450); WHITE BLOOD COUNT 17.4 10^3/uL (4.0-10.0)
[2022-06-13 15:56] LABS: LIPASE 29 U/L (12-53)
[2022-06-13 15:58] LABS: ALBUMIN 3.4 G/DL (3.2-5.2); ALKALINE PHOSPHATASE 97 U/L (46-116); ALT/SGPT 24 U/L (7.0-40); AST/SGOT 16 U/L (<34); BILIRUBIN,DIRECT < 0.1 MG/DL (<0.4); BILIRUBIN,TOTAL 0.3 MG/DL (0.3-1.2); BLOOD UREA NITROGEN 11 MG/DL (9-23); CALCIUM LEVEL 8.6 MG/DL (8.5-10.1); CARBON DIOXIDE LEVEL 22 MMOL/L (20-31); CHLORIDE LEVEL 106 MMOL/L (98-107); CREATININE FOR GFR 0.64 MG/DL (0.55-1.30); GLOMERULAR FILTRATION RATE > 60.0 (>51); GLUCOSE, FASTING 117 MG/DL (60-100); SODIUM LEVEL 138 MMOL/L (136-145); TOTAL PROTEIN 6.9 G/DL (5.7-8.2)
[2022-06-13] MEDS ORDERED: ISOVUE-370 76% 100ML VIAL As Ordered ONE (16:09)
[2022-06-13] MEDS ORDERED: MORPHINE 4 MG/ML 1ML VIAL IV PRN (16:10)
[2022-06-13] MEDS ORDERED: ONDANSETRON 4MG 2ML VIAL IV ONE (16:10)
[2022-06-13 17:05] LABS: RSV AMPLIFICATION NEGATIVE (NEGATIVE)
[2022-06-13] MEDS ORDERED: PIPERACILLIN/TAZOBACTAM SOD 4.5 GM in D5W MINI-BAG PLUS 50 ML IV ONE (17:35)
[2022-06-13] MEDS ORDERED: [UNRECOGNIZED DRUG - CODE] PO (19:53)
[2022-06-13] MEDS ORDERED: LINZ72CA PO (19:53)
[2022-06-13] MEDS ORDERED: LIDO1CRE2 TOP (19:53)
[2022-06-13] MEDS ORDERED: REFR0.5D8 OU (19:54)
[2022-06-13] MEDS ORDERED: HOME MED LIST COMPLETE! XX SCH (20:00)
[2022-06-13] MEDS: MORPHINE 2 MG/ML 1ML VIAL IV PRN (20:15)
[2022-06-13 21:02] VITALS: BP 132/86
[2022-06-13] MEDS: ONDANSETRON 4MG 2ML VIAL IV PRN (21:08)
[2022-06-13] MEDS: D5W/0.9% SODIUM CHLORIDE 1,000 ML IV SCH (21:09)
[2022-06-13] MEDS: PIPERACILLIN/TAZOBACTAM SOD 3.375 GM in D5W MINI-BAG PLUS 50 ML IV SCH (23:22)
[2022-06-13] MEDS: KETOROLAC 30 MG/ML 1ML VIAL IV PRN (23:22)
[2022-06-14 02:00] VITALS: BP 108/56
[2022-06-14] MEDS: D5W/0.9% SODIUM CHLORIDE 1,000 ML IV SCH ×4 (05:08→23:55)
[2022-06-14] MEDS: ONDANSETRON 4MG 2ML VIAL IV PRN ×3 (05:08→13:17)
[2022-06-14] MEDS: MORPHINE 2 MG/ML 1ML VIAL IV PRN ×3 (05:09→13:18)
[2022-06-14] MEDS: PIPERACILLIN/TAZOBACTAM SOD 3.375 GM in D5W MINI-BAG PLUS 50 ML IV SCH ×4 (05:41→23:55)
[2022-06-14 06:00] VITALS: BP 124/72
[2022-06-14 06:00] LABS: HEMATOCRIT 34.8 % (36.0-47.0); MEAN CORPUSCULAR HEMOGLOBIN 27.4 pg (27.0-33.0); MEAN CORPUSCULAR HGB CONC 31.6 g/dl (32.0-36.5); MEAN CORPUSCULAR VOLUME 86.6 fl (80.0-96.0); PLATELET COUNT, AUTOMATED 303 10^3/uL (150-450); RED BLOOD COUNT 4.02 10^6/uL (4.00-5.40); WHITE BLOOD COUNT 15.3 10^3/uL (4.0-10.0)
[2022-06-14 06:32] LABS: BLOOD UREA NITROGEN 12 MG/DL (9-23); CALCIUM LEVEL 7.7 MG/DL (8.5-10.1); CARBON DIOXIDE LEVEL 23 MMOL/L (20-31); CHLORIDE LEVEL 106 MMOL/L (98-107); CREATININE FOR GFR 0.74 MG/DL (0.55-1.30); GLOMERULAR FILTRATION RATE > 60.0 (>51); GLUCOSE, FASTING 111 MG/DL (60-100); POTASSIUM SERUM 3.7 MMOL/L (3.5-5.1); SODIUM LEVEL 138 MMOL/L (136-145)
[2022-06-14] MEDS: ENOXAPARIN 40MG/0.4ML SYRINGE (J1650 PER 10MG) SC SCH (07:56)
[2022-06-14] MEDS: KETOROLAC 30 MG/ML 1ML VIAL IV PRN ×3 (07:56→23:56)
[2022-06-14] MEDS ORDERED: FLUBLOK(EGG FREE)(QUAD)INFLUENZA VACC 0.5ML SYRINGE 18YRS & OLDER IM.IMMUN ONE (09:00)
[2022-06-14 10:00] VITALS: BP 125/75
[2022-06-14] MEDS: buPROPion **XL** TABLET 150MG (WELLBUTRIN XL) PO SCH (11:30)
[2022-06-14 14:00] VITALS: BP 127/75
[2022-06-14 18:00] VITALS: BP 122/78
[2022-06-14] MEDS: ACETAMINOPHEN 500 MG TAB PO PRN (20:48)
[2022-06-14 22:00] VITALS: BP 118/73
[2022-06-15 02:00] VITALS: BP 113/62
[2022-06-15 06:00] VITALS: BP 128/68
[2022-06-15] MEDS: KETOROLAC 30 MG/ML 1ML VIAL IV PRN ×3 (06:03→23:52)
[2022-06-15] MEDS: PIPERACILLIN/TAZOBACTAM SOD 3.375 GM in D5W MINI-BAG PLUS 50 ML IV SCH ×4 (06:03→23:52)
[2022-06-15 07:31] LABS: HEMATOCRIT 34.5 % (36.0-47.0); HEMOGLOBIN 10.8 g/dl (12.0-15.5); MEAN CORPUSCULAR HEMOGLOBIN 27.3 pg (27.0-33.0); MEAN CORPUSCULAR HGB CONC 31.3 g/dl (32.0-36.5); MEAN CORPUSCULAR VOLUME 87.1 fl (80.0-96.0); PLATELET COUNT, AUTOMATED 304 10^3/uL (150-450); RED BLOOD COUNT 3.96 10^6/uL (4.00-5.40); WHITE BLOOD COUNT 10.9 10^3/uL (4.0-10.0)
[2022-06-15 08:14] LABS: BLOOD UREA NITROGEN 9 MG/DL (9-23); CALCIUM LEVEL 7.5 MG/DL (8.5-10.1); CARBON DIOXIDE LEVEL 24 MMOL/L (20-31); CHLORIDE LEVEL 108 MMOL/L (98-107); CREATININE FOR GFR 0.72 MG/DL (0.55-1.30); GLOMERULAR FILTRATION RATE > 60.0 (>51); GLUCOSE, FASTING 113 MG/DL (60-100); POTASSIUM SERUM 3.8 MMOL/L (3.5-5.1); SODIUM LEVEL 139 MMOL/L (136-145)
[2022-06-15] MEDS: buPROPion **XL** TABLET 150MG (WELLBUTRIN XL) PO SCH (08:26)
[2022-06-15] MEDS: ONDANSETRON 4MG 2ML VIAL IV PRN (08:27)
[2022-06-15] MEDS: MORPHINE 2 MG/ML 1ML VIAL IV PRN (08:30)
[2022-06-15] MEDS: ENOXAPARIN 40MG/0.4ML SYRINGE (J1650 PER 10MG) SC SCH (08:30)
[2022-06-15] MEDS: PANTOPRAZOLE 40MG TAB (PROTONIX) PO SCH (09:04)
[2022-06-15 10:00] VITALS: BP 131/71
[2022-06-15] MEDS: D5W/0.9% SODIUM CHLORIDE 1,000 ML IV SCH ×2 (10:26→21:16)
[2022-06-15 14:00] VITALS: BP 136/71
[2022-06-15 18:00] VITALS: BP 129/71
[2022-06-16] VITALS (8 sets, daily range): BP systolic 113–164; BP diastolic 68–92
[2022-06-16 05:49] LABS: HEMATOCRIT 30.9 % (36.0-47.0); HEMOGLOBIN 9.8 g/dl (12.0-15.5); MEAN CORPUSCULAR HEMOGLOBIN 27.4 pg (27.0-33.0); MEAN CORPUSCULAR HGB CONC 31.7 g/dl (32.0-36.5); MEAN CORPUSCULAR VOLUME 86.3 fl (80.0-96.0); PLATELET COUNT, AUTOMATED 288 10^3/uL (150-450); RED BLOOD COUNT 3.58 10^6/uL (4.00-5.40); WHITE BLOOD COUNT 9.9 10^3/uL (4.0-10.0)
[2022-06-16] MEDS: PIPERACILLIN/TAZOBACTAM SOD 3.375 GM in D5W MINI-BAG PLUS 50 ML IV SCH ×4 (06:05→23:24)
[2022-06-16] MEDS: D5W/0.9% SODIUM CHLORIDE 1,000 ML IV SCH ×3 (06:06→18:36)
[2022-06-16 07:04] LABS: BLOOD UREA NITROGEN < 5 MG/DL (9-23); CALCIUM LEVEL 7.6 MG/DL (8.5-10.1); CARBON DIOXIDE LEVEL 22 MMOL/L (20-31); CHLORIDE LEVEL 109 MMOL/L (98-107); GLOMERULAR FILTRATION RATE > 60.0 (>51); GLUCOSE, FASTING 122 MG/DL (60-100); POTASSIUM SERUM 3.4 MMOL/L (3.5-5.1); SODIUM LEVEL 140 MMOL/L (136-145)
[2022-06-16] MEDS: PANTOPRAZOLE 40MG TAB (PROTONIX) PO SCH (08:01)
[2022-06-16] MEDS: buPROPion **XL** TABLET 150MG (WELLBUTRIN XL) PO SCH (08:01)
[2022-06-16] MEDS: KETOROLAC 30 MG/ML 1ML VIAL IV PRN ×2 (08:02→20:53)
[2022-06-16] MEDS: ACETAMINOPHEN 500 MG TAB PO PRN (08:02)
[2022-06-16] MEDS: ENOXAPARIN 40MG/0.4ML SYRINGE (J1650 PER 10MG) SC SCH (09:50)
[2022-06-16] MEDS: POTASSIUM CHLORIDE 10MEQ SR TABLET PO SCH ×2 (11:55→20:30)
[2022-06-16] MEDS ORDERED: PREPARATION H OINTMENT (HEMORRHOID) PR PRN (18:45)
[2022-06-16] MEDS: LACTOBACILLUS ACIDOPHILUS CAP (BACID) PO SCH (20:30)
[2022-06-17 02:00] VITALS: BP 130/72
[2022-06-17] MEDS: D5W/0.9% SODIUM CHLORIDE 1,000 ML IV SCH ×2 (02:00→06:05)
[2022-06-17 06:00] VITALS: BP 150/80
[2022-06-17] MEDS: PIPERACILLIN/TAZOBACTAM SOD 3.375 GM in D5W MINI-BAG PLUS 50 ML IV SCH (06:05)
[2022-06-17 06:36] LABS: HEMATOCRIT 31.1 % (36.0-47.0); HEMOGLOBIN 10.2 g/dl (12.0-15.5); MEAN CORPUSCULAR HEMOGLOBIN 27.7 pg (27.0-33.0); MEAN CORPUSCULAR HGB CONC 32.8 g/dl (32.0-36.5); MEAN CORPUSCULAR VOLUME 84.5 fl (80.0-96.0); PLATELET COUNT, AUTOMATED 292 10^3/uL (150-450); RED BLOOD COUNT 3.68 10^6/uL (4.00-5.40); WHITE BLOOD COUNT 8.6 10^3/uL (4.0-10.0)
[2022-06-17 07:26] LABS: BLOOD UREA NITROGEN < 5 MG/DL (9-23); CALCIUM LEVEL 8.1 MG/DL (8.5-10.1); CARBON DIOXIDE LEVEL 20 MMOL/L (20-31); CHLORIDE LEVEL 109 MMOL/L (98-107); CREATININE FOR GFR 0.65 MG/DL (0.55-1.30); GLOMERULAR FILTRATION RATE > 60.0 (>51); GLUCOSE, FASTING 113 MG/DL (60-100); POTASSIUM SERUM 3.6 MMOL/L (3.5-5.1); SODIUM LEVEL 138 MMOL/L (136-145)
[2022-06-17 08:00] VITALS: BP 150/80
[2022-06-17] MEDS: ENOXAPARIN 40MG/0.4ML SYRINGE (J1650 PER 10MG) SC SCH (09:19)
[2022-06-17] MEDS ORDERED: METR-265 PO (09:40)
[2022-06-17] MEDS ORDERED: ACET-683 PO (09:40)
[2022-06-17] MEDS ORDERED: CIPR-249 PO (09:40)
[2022-06-17] MEDS ORDERED: RISATAB3 PO (09:40)
[2022-06-17] MEDS: buPROPion **XL** TABLET 150MG (WELLBUTRIN XL) PO SCH (09:53)
[2022-06-17] MEDS: LACTOBACILLUS ACIDOPHILUS CAP (BACID) PO SCH (09:53)
[2022-06-17] MEDS: PANTOPRAZOLE 40MG TAB (PROTONIX) PO SCH (09:54)
[2022-06-17] MEDS: KETOROLAC 30 MG/ML 1ML VIAL IV PRN (09:54)
[2022-06-17] MEDS ORDERED: metroNIDAZOLE (FLAGYL) 500MG TABLET PO SCH (12:00)
[2022-06-17 14:00] VITALS: BP 136/81
== END 2022-06-17 16:23 | disposition home or self-care (01) | DRG 244 ==
LOC: M ED 14:32 → M ED INP 17:59 → ENRESERV 20:18 → M MSPAV 20:48
PROVIDERS: ADMIT Family Medicine; ATTEND Student in an Organized Health Care Education/Training Program
DX: K57.32 Diverticulitis of large intestine without perforation or abscess without bleeding (principal); E03.9 Hypothyroidism, unspecified; K21.9 Gastro-esophageal reflux disease without esophagitis; E78.5 Hyperlipidemia, unspecified; J45.909 Unspecified asthma, uncomplicated; Z79.899 Other long term (current) drug therapy; Z79.1 Long term (current) use of non-steroidal anti-inflammatories (NSAID); Z91.040 Latex allergy status; I10 Essential (primary) hypertension; D64.9 Anemia, unspecified; F32.A Depression, unspecified

== ENCOUNTER → 2022-06-23 | Outpatient (CLI) | payer OTHER ==
[~2022-06-23] MED LIST changes: +ACET-683 PO; +LIDO1CRE2 TOP; +LINZ72CA PO; +MELO15TA28 PO; +METR-265 PO; +REFR0.5D8 OU; +RISATAB3 PO; +[UNRECOGNIZED DRUG - CODE] PO
== END ==
LOC: M RAD 12:10
PROVIDERS: ATTEND Family Medicine Addiction Medicine
DX: R05.3 Chronic cough (principal)

== ENCOUNTER 2023-01-04 11:04 | Inpatient (IN) | payer MEDICAID, OTHER ==
[~2023-01-04] VITALS: Ht 154.9 cm; Wt 84.9 kg
[2023-01-04 12:10] LABS: BASO # 0.1 10^3/uL (0.0-0.2); BASO % 0.7 % (0.0-1.0); EOS # 0.2 10^3/uL (0.0-0.5); EOS % 0.8 % (0.0-3.0); HEMATOCRIT 43.5 % (36.0-47.0); HEMOGLOBIN 14.3 g/dl (12.0-15.5); LYMPH # 3.7 10^3/uL (1.5-5.0); LYMPH % 18.8 % (24.0-44.0); MEAN CORPUSCULAR HGB CONC 32.9 g/dl (32.0-36.5); MEAN CORPUSCULAR VOLUME 82.2 fl (80.0-96.0); MONO # 1.3 10^3/uL (0.0-0.8); MONO % 6.4 % (2.0-8.0); NEUTROPHILS # 14.3 10^3/uL (1.5-8.5); NEUTROPHILS % 72.8 % (36.0-66.0); PLATELET COUNT, AUTOMATED 407 10^3/uL (150-450); RED BLOOD COUNT 5.29 10^6/uL (4.00-5.40); WHITE BLOOD COUNT 19.7 10^3/uL (4.0-10.0)
[2023-01-04 12:43] LABS: AMPHETAMINES LEVEL URINE NEGATIVE (NEGATIVE); BARBITURATES URINE NEGATIVE (NEGATIVE); BENZODIAZEPINES URINE NEGATIVE (NEGATIVE); METHADONE URINE NEGATIVE (NEGATIVE); OPIATES URINE NEGATIVE (NEGATIVE); PHENCYCLIDINE URINE NEGATIVE (NEGATIVE)
[2023-01-04 12:45] LABS: CANNABINOIDS URINE POSITIVE (NEGATIVE); COCAINE METABOLITE URINE POSITIVE (NEGATIVE)
[2023-01-04 12:47] LABS: BLOOD UREA NITROGEN 14 MG/DL (9-23); CALCIUM LEVEL 9.1 MG/DL (8.5-10.1); CARBON DIOXIDE LEVEL 19 MMOL/L (20-31); CHLORIDE LEVEL 105 MMOL/L (98-107); CREATININE FOR GFR 0.72 MG/DL (0.55-1.30); GLOMERULAR FILTRATION RATE > 60.0 (>51); GLUCOSE, FASTING 99 MG/DL (60-100); POTASSIUM SERUM 4.3 MMOL/L (3.5-5.1); SODIUM LEVEL 134 MMOL/L (136-145)
[2023-01-04 13:36] LABS: ETHYL ALCOHOL (ETHANOL) < 0.003 % (0.000-0.010)
[2023-01-04 13:38] LABS: ACETAMINOPHEN LEVEL < 2.0 UG/ML (10.0-20.0); ALBUMIN 4.2 G/DL (3.2-5.2); ALKALINE PHOSPHATASE 106 U/L (46-116); ALT/SGPT 27 U/L (7.0-40); AST/SGOT 10 U/L (<34); BILIRUBIN,DIRECT 0.2 MG/DL (<0.4); BILIRUBIN,TOTAL 0.8 MG/DL (0.3-1.2); TOTAL PROTEIN 7.9 G/DL (5.7-8.2)
[2023-01-04 13:40] LABS: THYROID STIMULATING HORMONE 1.981 uIU/ML (0.55-4.78)
[2023-01-04 13:46] LABS: HCG, SERUM QUALITATIVE NEGATIVE (NEGATIVE)
[2023-01-04] MEDS ORDERED: MED REC IN PROGRESS XX SCH (17:50)
[2023-01-04] MEDS ORDERED: diphenhydrAMINE 25MG CAP PO PRN (18:30)
[2023-01-04] MEDS ORDERED: NICOTINE 21MG/24HR 1 EA TRANSDERMAL TD PRN (18:30)
[2023-01-04] MEDS ORDERED: ACETAMINOPHEN TAB 650MG DOSE (2X325MG) PO PRN (18:30)
[2023-01-04] MEDS ORDERED: OLANZapine ORAL DISINTEGRATING TAB 5MG PO PRN (18:30)
[2023-01-04] MEDS ORDERED: MAALOX 30 ML SUSP *UDC PO PRN (18:30)
[2023-01-04] MEDS ORDERED: MOM 30ML SUSPENSION UDC PO PRN (18:30)
[2023-01-04] MEDS ORDERED: VITA400C83 PO (22:52)
[2023-01-04] MEDS ORDERED: CETI-14 PO (22:52)
[2023-01-04] MEDS ORDERED: IBUP1TAB7 PO (22:52)
[2023-01-04] MEDS ORDERED: ALBU8.5H INH (22:52)
[2023-01-04] MEDS ORDERED: VITA100093 PO (22:52)
[2023-01-04] MEDS ORDERED: MONT10TA97 PO (22:52)
[2023-01-04] MEDS ORDERED: AMLO1TAB24 PO (22:52)
[2023-01-04] MEDS ORDERED: INCR1INH INH (22:52)
[2023-01-04] MEDS ORDERED: HOME MED LIST COMPLETE! XX SCH (22:55)
[2023-01-04 23:47] VITALS: BP 148/82; TEMP 97.9; O2SAT 97
[2023-01-05] MEDS: traZODone 50 MG TAB PO PRN (00:53)
[2023-01-05] MEDS ORDERED: LORazepam 2 MG TAB PO PRN (05:20)
[2023-01-05] MEDS ORDERED: THIAMINE 100 MG TAB PO SCH (06:00)
[2023-01-05 06:07] VITALS: BP 131/59; TEMP 98; O2SAT 97
[2023-01-05 08:00] VITALS: BP 131/59
[2023-01-05] MEDS: FOLIC ACID 1MG TAB PO SCH (08:42)
[2023-01-05] MEDS ORDERED: OMEPRAZOLE 20MG CAP PO SCH (09:00)
[2023-01-05] MEDS ORDERED: MULTIVITAMINS/MINERALS THERAP 1 TAB PO SCH (09:00)
[2023-01-05] MEDS ORDERED: amLODIPine 5 MG TAB PO SCH (09:00)
[2023-01-05] MEDS ORDERED: ALBUTEROL 90 MCG/ACT 8GM HFA INHALER INH PRN (09:55)
[2023-01-05] MEDS: SERTRALINE HCL 50 MG TAB PO SCH (11:42)
[2023-01-05] MEDS: MONTELUKAST 10 MG TAB PO SCH (11:42)
[2023-01-05] MEDS: VITAMIN D 1,000 INTERNATIONAL UNITS TABLET PO SCH (11:43)
[2023-01-05] MEDS: CETIRIZINE (ZyrTEC) 10 MG TAB PO SCH (11:43)
[2023-01-05] MEDS: buPROPion **XL** TABLET 150MG (WELLBUTRIN XL) PO SCH (11:43)
[2023-01-05] MEDS: ASCORBIC ACID 500 MG TAB PO SCH (11:44)
[2023-01-05] MEDS: TIOTROPIUM INHALER/CAPSULE (SPIRIVA) INH SCH (11:46)
[2023-01-05] MEDS: VITAMIN E 400 INTERNATIONAL UNITS CAP PO SCH (12:26)
[2023-01-05 16:15] VITALS: BP 160/90
[2023-01-05 18:24] VITALS: BP 160/90; TEMP 97.2; O2SAT 96
[2023-01-05] MEDS: amLODIPine 5 MG TAB PO SCH (20:08)
[2023-01-06 06:43] VITALS: BP 145/65; TEMP 98; O2SAT 98
[2023-01-06 06:44] VITALS: BP 145/65
[2023-01-06] MEDS ORDERED: OMEPRAZOLE 20MG CAP PO SCH (07:00)
[2023-01-06] MEDS: TIOTROPIUM INHALER/CAPSULE (SPIRIVA) INH SCH (08:15)
[2023-01-06] MEDS: OMEPRAZOLE 20MG CAP PO SCH (08:15)
[2023-01-06 09:34] VITALS: BP 156/76
[2023-01-06] MEDS: ASCORBIC ACID 500 MG TAB PO SCH (09:36)
[2023-01-06] MEDS: VITAMIN D 1,000 INTERNATIONAL UNITS TABLET PO SCH (09:36)
[2023-01-06] MEDS: SERTRALINE HCL 50 MG TAB PO SCH (09:37)
[2023-01-06] MEDS: MONTELUKAST 10 MG TAB PO SCH (09:37)
[2023-01-06] MEDS: CETIRIZINE (ZyrTEC) 10 MG TAB PO SCH (09:37)
[2023-01-06] MEDS: amLODIPine 5 MG TAB PO SCH ×2 (09:37→20:58)
[2023-01-06] MEDS: VITAMIN E 400 INTERNATIONAL UNITS CAP PO SCH (09:38)
[2023-01-06] MEDS: buPROPion **XL** TABLET 150MG (WELLBUTRIN XL) PO SCH (09:38)
[2023-01-06] MEDS: FOLIC ACID 1MG TAB PO SCH (09:38)
[2023-01-06] MEDS: IBUPROFEN 400MG TAB PO PRN (12:08)
[2023-01-06 18:52] VITALS: BP 132/71; TEMP 98
[2023-01-06] MEDS: traZODone 50 MG TAB PO PRN (20:57)
[2023-01-06 22:00] VITALS: BP 130/78
[2023-01-07] MEDS: OMEPRAZOLE 20MG CAP PO SCH (06:33)
[2023-01-07 06:43] VITALS: BP 129/75
[2023-01-07 06:45] VITALS: BP 129/75; TEMP 98.7; O2SAT 99
[2023-01-07] MEDS: TIOTROPIUM INHALER/CAPSULE (SPIRIVA) INH SCH (08:29)
[2023-01-07 08:31] VITALS: BP 153/72
[2023-01-07] MEDS: amLODIPine 5 MG TAB PO SCH ×2 (08:32→20:20)
[2023-01-07] MEDS: SERTRALINE HCL 50 MG TAB PO SCH (08:33)
[2023-01-07] MEDS: VITAMIN E 400 INTERNATIONAL UNITS CAP PO SCH (08:33)
[2023-01-07] MEDS: FOLIC ACID 1MG TAB PO SCH (08:33)
[2023-01-07] MEDS: VITAMIN D 1,000 INTERNATIONAL UNITS TABLET PO SCH (08:33)
[2023-01-07] MEDS: CETIRIZINE (ZyrTEC) 10 MG TAB PO SCH (08:33)
[2023-01-07] MEDS: ASCORBIC ACID 500 MG TAB PO SCH (08:33)
[2023-01-07] MEDS: buPROPion **XL** TABLET 150MG (WELLBUTRIN XL) PO SCH (08:33)
[2023-01-07] MEDS: MONTELUKAST 10 MG TAB PO SCH (08:33)
[2023-01-07 18:50] VITALS: BP 140/72; TEMP 98.4
[2023-01-07] MEDS: IBUPROFEN 400MG TAB PO PRN (20:21)
[2023-01-07 22:27] VITALS: BP 141/64
[2023-01-08 06:27] VITALS: BP 129/66
[2023-01-08 06:28] VITALS: BP 122/66; TEMP 97.9; O2SAT 99
[2023-01-08] MEDS: OMEPRAZOLE 20MG CAP PO SCH (06:34)
[2023-01-08] MEDS: VITAMIN D 1,000 INTERNATIONAL UNITS TABLET PO SCH (08:32)
[2023-01-08] MEDS: VITAMIN E 400 INTERNATIONAL UNITS CAP PO SCH (08:32)
[2023-01-08] MEDS: buPROPion **XL** TABLET 150MG (WELLBUTRIN XL) PO SCH (08:32)
[2023-01-08] MEDS: SERTRALINE HCL 50 MG TAB PO SCH (08:32)
[2023-01-08] MEDS: MONTELUKAST 10 MG TAB PO SCH (08:32)
[2023-01-08] MEDS: FOLIC ACID 1MG TAB PO SCH (08:32)
[2023-01-08] MEDS: CETIRIZINE (ZyrTEC) 10 MG TAB PO SCH (08:33)
[2023-01-08] MEDS: ASCORBIC ACID 500 MG TAB PO SCH (08:33)
[2023-01-08] MEDS: TIOTROPIUM INHALER/CAPSULE (SPIRIVA) INH SCH (08:35)
[2023-01-08] MEDS: amLODIPine 5 MG TAB PO SCH ×2 (08:38→20:23)
[2023-01-08] MEDS: IBUPROFEN 400MG TAB PO PRN (13:21)
[2023-01-08 14:00] VITALS: BP 136/64
[2023-01-08 18:00] VITALS: BP 138/62; TEMP 99.1; O2SAT 98
[2023-01-08 20:20] VITALS: BP 147/70
[2023-01-09 04:20] VITALS: BP_SYST 134; BP_DIAS 61; BP_DIAS 63; TEMP 97.7; O2SAT 98
[2023-01-09] MEDS: OMEPRAZOLE 20MG CAP PO SCH (06:44)
[2023-01-09] MEDS: buPROPion **XL** TABLET 150MG (WELLBUTRIN XL) PO SCH (08:05)
[2023-01-09] MEDS: VITAMIN E 400 INTERNATIONAL UNITS CAP PO SCH (08:05)
[2023-01-09] MEDS: SERTRALINE HCL 50 MG TAB PO SCH (08:05)
[2023-01-09] MEDS: ASCORBIC ACID 500 MG TAB PO SCH (08:05)
[2023-01-09] MEDS: TIOTROPIUM INHALER/CAPSULE (SPIRIVA) INH SCH (08:05)
[2023-01-09] MEDS: FOLIC ACID 1MG TAB PO SCH (08:06)
[2023-01-09] MEDS: VITAMIN D 1,000 INTERNATIONAL UNITS TABLET PO SCH (08:06)
[2023-01-09] MEDS: MONTELUKAST 10 MG TAB PO SCH (08:06)
[2023-01-09] MEDS: CETIRIZINE (ZyrTEC) 10 MG TAB PO SCH (08:06)
[2023-01-09] MEDS: amLODIPine 5 MG TAB PO SCH ×2 (08:10→20:26)
[2023-01-09 18:14] VITALS: BP 130/78; TEMP 97.2
[2023-01-10 06:05] VITALS: BP 127/60; TEMP 97.7; O2SAT 98
[2023-01-10] MEDS: OMEPRAZOLE 20MG CAP PO SCH (06:32)
[2023-01-10] MEDS: TIOTROPIUM INHALER/CAPSULE (SPIRIVA) INH SCH (08:30)
[2023-01-10 08:31] VITALS: BP 154/84
[2023-01-10] MEDS: MONTELUKAST 10 MG TAB PO SCH (08:31)
[2023-01-10] MEDS: amLODIPine 5 MG TAB PO SCH (08:31)
[2023-01-10] MEDS: VITAMIN D 1,000 INTERNATIONAL UNITS TABLET PO SCH (08:31)
[2023-01-10] MEDS: buPROPion **XL** TABLET 150MG (WELLBUTRIN XL) PO SCH (08:31)
[2023-01-10] MEDS: VITAMIN E 400 INTERNATIONAL UNITS CAP PO SCH (08:32)
[2023-01-10] MEDS: FOLIC ACID 1MG TAB PO SCH (08:32)
[2023-01-10] MEDS: SERTRALINE HCL 50 MG TAB PO SCH (08:32)
[2023-01-10] MEDS: CETIRIZINE (ZyrTEC) 10 MG TAB PO SCH (08:32)
[2023-01-10] MEDS: ASCORBIC ACID 500 MG TAB PO SCH (08:32)
[2023-01-10] MEDS ORDERED: AMLO1TAB24 PO (08:41)
[2023-01-10] MEDS ORDERED: SERT50TA29 PO (08:41)
== END 2023-01-10 11:34 | disposition home or self-care (01) | DRG 754 ==
LOC: M ED 11:04 → M ED INP 18:26 → M PSY 23:46
PROVIDERS: ADMIT Student in an Organized Health Care Education/Training Program; ATTEND Student in an Organized Health Care Education/Training Program
DX: F32.9 Major depressive disorder, single episode, unspecified (principal); I10 Essential (primary) hypertension; F10.10 Alcohol abuse, uncomplicated; F12.10 Cannabis abuse, uncomplicated; F14.10 Cocaine abuse, uncomplicated; Z79.899 Other long term (current) drug therapy; Z91.040 Latex allergy status; K21.9 Gastro-esophageal reflux disease without esophagitis; E78.5 Hyperlipidemia, unspecified; J45.909 Unspecified asthma, uncomplicated; F17.200 Nicotine dependence, unspecified, uncomplicated; Z91.411 Personal history of adult psychological abuse; Z91.410 Personal history of adult physical and sexual abuse; Z63.0 Problems in relationship with spouse or partner

== ENCOUNTER → 2023-10-10 | Outpatient (CLI) | payer OTHER ==
[~2023-10-10] MED LIST changes: +AMLO1TAB24 PO; +CETI-14 PO; +IBUP1TAB7 PO; +INCR1INH INH; +LORA-1041 PO; -LORA-674 PO; +MONT10TA97 PO; +SERT50TA29 PO; +VITA100093 PO; +VITA400C83 PO
== END ==
LOC: M WHC 12:02
PROVIDERS: ATTEND Family Medicine Addiction Medicine
DX: Z12.31 Encounter for screening mammogram for malignant neoplasm of breast (principal)

== ENCOUNTER → 2023-11-30 | Outpatient (REF) | payer OTHER | LOC: M LAB REF 17:09 | PROVIDERS: ATTEND Physician Assistant Medical | DX: H73.0 Acute myringitis (principal) ==

== ENCOUNTER 2024-01-10 06:53 | Emergency (ER) | payer OTHER ==
[~2024-01-10] VITALS: Ht 154.9 cm; Wt 83.9 kg
[~2024-01-10 06:53] MED LIST changes: +ONDA-282 PO; -ONDA4TAB6 PO
[2024-01-10] MEDS ORDERED: AMOX875T2 PO (09:05)
[2024-01-10] MEDS ORDERED: CIPR7.5D2 OT (09:53)
[2024-01-10] MEDS ORDERED: CIPR7.5D2 AS (09:55)
[2024-01-10] MEDS ORDERED: FLUC10TA PO (10:03)
[2024-01-10 10:07] VITALS: BP 148/78; TEMP 97.1; O2SAT 96
== END 2024-01-10 10:08 | disposition home or self-care (01) ==
LOC: M ED 06:53
DX: H66.93 Otitis media, unspecified, bilateral (principal); H60.8X2 Other otitis externa, left ear; F17.210 Nicotine dependence, cigarettes, uncomplicated; Z91.040 Latex allergy status; Z79.51 Long term (current) use of inhaled steroids; Z79.2 Long term (current) use of antibiotics; Z79.899 Other long term (current) drug therapy

== ENCOUNTER 2024-03-29 14:43 | Observation (INO) | payer BC, OTHER ==
[~2024-03-29] VITALS: Ht 154.9 cm; Wt 86.3 kg
[~2024-03-29 14:43] MED LIST changes: +AMOX875T2 PO; +CIPR7.5D2 AS; +CIPR7.5D2 OT; +E-401CAP2 PO; +FLUC10TA PO; +GABA-1172 PO; -GABA-282 PO; -LIDO1CRE2 TOP; +LIDO4CRE12 TOP; -VITA400C83 PO
[2024-03-29 17:04] LABS: BASO # 0.1 10^3/uL (0.0-0.2); EOS # 0.2 10^3/uL (0.0-0.5); EOS % 1.7 % (0.0-3.0); HEMATOCRIT 45.9 % (36.0-47.0); HEMOGLOBIN 14.8 g/dl (12.0-15.5); LYMPH # 3.7 10^3/uL (1.5-5.0); LYMPH % 32.4 % (24.0-44.0); MEAN CORPUSCULAR HEMOGLOBIN 27.6 pg (27.0-33.0); MEAN CORPUSCULAR HGB CONC 32.2 g/dl (32.0-36.5); MEAN CORPUSCULAR VOLUME 85.6 fl (80.0-96.0); MONO # 0.8 10^3/uL (0.0-0.8); MONO % 7.1 % (2.0-8.0); NEUTROPHILS # 6.5 10^3/uL (1.5-8.5); NEUTROPHILS % 57.5 % (36.0-66.0); PLATELET COUNT, AUTOMATED 412 10^3/uL (150-450); RED BLOOD COUNT 5.36 10^6/uL (4.00-5.40); WHITE BLOOD COUNT 11.3 10^3/uL (4.0-10.0)
[2024-03-29 17:28] LABS: LIPASE 35 U/L (12-53)
[2024-03-29 17:31] LABS: ALKALINE PHOSPHATASE 120 U/L (46-116); ALT/SGPT 32 U/L (7.0-40); AST/SGOT 24 U/L (<34); BILIRUBIN,DIRECT 0.2 MG/DL (<0.4); BILIRUBIN,TOTAL 0.6 MG/DL (0.3-1.2); BLOOD UREA NITROGEN 14 MG/DL (9-23); CALCIUM LEVEL 9.5 MG/DL (8.5-10.1); CARBON DIOXIDE LEVEL 24 MMOL/L (20-31); CHLORIDE LEVEL 106 MMOL/L (98-107); CREATININE FOR GFR 0.66 MG/DL (0.55-1.30); GLOMERULAR FILTRATION RATE > 60.0 (>51); GLUCOSE, FASTING 92 MG/DL (60-100); POTASSIUM SERUM 4.2 MMOL/L (3.5-5.1); SODIUM LEVEL 138 MMOL/L (136-145); TOTAL PROTEIN 8.2 G/DL (5.7-8.2)
[2024-03-29] MEDS: MORPHINE 2 MG/ML 1ML VIAL IV ONE (17:59)
[2024-03-29] MEDS: NS 1,000 ML IV ONE ×2 (17:59→21:15)
[2024-03-29] MEDS: PIPERACILLIN/TAZOBACTAM SOD 3.375 GM in DEXTROSE 5% (D5W) ADV/MINI-BAG 50 ML IV ONE (17:59)
[2024-03-29 18:00] LABS: MAGNESIUM LEVEL 2.1 MG/DL (1.8-2.4)
[2024-03-29 18:01] LABS: AMYLASE 33 U/L (30-118)
[2024-03-29] MEDS ORDERED: ISOVUE-370 76% 100ML VIAL As Ordered ONE (19:19)
[2024-03-29] MEDS: metroNIDAZOLE 500 MG in IV 1 EA IV ONE (21:15)
[2024-03-29] MEDS ORDERED: SERT50TA29 PO (21:46)
[2024-03-29] MEDS ORDERED: HOME MED LIST COMPLETE! XX SCH (21:50)
[2024-03-29] MEDS ORDERED: ACETAMINOPHEN TAB 650MG DOSE (2X325MG) PO PRN (22:05)
[2024-03-29] MEDS ORDERED: ALBUTEROL 90 MCG/ACT 8GM HFA INHALER INH PRN (22:10)
[2024-03-29] MEDS ORDERED: ONDANSETRON 4MG 2ML VIAL IV PRN (22:10)
[2024-03-29] MEDS ORDERED: MORPHINE 4 MG/ML 1ML VIAL IV PRN (22:20)
[2024-03-29] MEDS: KCL 20MEQ in NS 1000ML 1,000 ML IV SCH (22:30)
[2024-03-29] MEDS: amLODIPine 5 MG TAB PO ONE (22:30)
[2024-03-29] MEDS: PIPERACILLIN/TAZOBACTAM SOD 3.375 GM in DEXTROSE 5% (D5W) ADV/MINI-BAG 50 ML IV SCH (23:56)
[2024-03-30 02:29] VITALS: BP 143/71; TEMP 97.5; O2SAT 96
[2024-03-30] MEDS: KETOROLAC 30 MG/ML 1ML VIAL IV PRN (02:49)
[2024-03-30 04:54] VITALS: BP 142/71; TEMP 97.2; O2SAT 95
[2024-03-30 06:30] LABS: MEAN CORPUSCULAR HEMOGLOBIN 27.3 pg (27.0-33.0); MEAN CORPUSCULAR HGB CONC 32.1 g/dl (32.0-36.5); PLATELET COUNT, AUTOMATED 317 10^3/uL (150-450); RED BLOOD COUNT 4.47 10^6/uL (4.00-5.40); WHITE BLOOD COUNT 9.9 10^3/uL (4.0-10.0)
[2024-03-30 06:42] LABS: HEMOGLOBIN 12.2 g/dl (12.0-15.5)
[2024-03-30 07:02] LABS: ALKALINE PHOSPHATASE 92 U/L (46-116); ALT/SGPT 25 U/L (7.0-40); AST/SGOT 16 U/L (<34); BILIRUBIN,TOTAL 0.7 MG/DL (0.3-1.2); BLOOD UREA NITROGEN 11 MG/DL (9-23); CALCIUM LEVEL 8.1 MG/DL (8.5-10.1); CARBON DIOXIDE LEVEL 22 MMOL/L (20-31); CHLORIDE LEVEL 110 MMOL/L (98-107); CREATININE FOR GFR 0.67 MG/DL (0.55-1.30); GLOMERULAR FILTRATION RATE > 60.0 (>51); GLUCOSE, FASTING 93 MG/DL (60-100); MAGNESIUM LEVEL 1.9 MG/DL (1.8-2.4); POTASSIUM SERUM 4.1 MMOL/L (3.5-5.1); SODIUM LEVEL 139 MMOL/L (136-145); TOTAL PROTEIN 6.3 G/DL (5.7-8.2)
[2024-03-30 08:00] VITALS: BP 120/58; TEMP 97.5; O2SAT 96
[2024-03-30] MEDS: ADVAIR HFA 115/21MCG INHALER INH SCH (08:02)
[2024-03-30 08:13] VITALS: BP 119/58
[2024-03-30] MEDS: amLODIPine 5 MG TAB PO SCH (08:13)
[2024-03-30] MEDS: MONTELUKAST 10 MG TAB PO SCH (08:13)
[2024-03-30] MEDS: ASCORBIC ACID 500 MG TAB PO SCH (08:14)
[2024-03-30] MEDS: CETIRIZINE (ZyrTEC) 10 MG TAB PO SCH (08:14)
[2024-03-30] MEDS: ENOXAPARIN 40MG/0.4ML SYRINGE (J1650 PER 10MG) SC SCH (08:14)
[2024-03-30] MEDS: PANTOPRAZOLE 40MG TAB (PROTONIX) PO SCH (08:14)
[2024-03-30] MEDS: SERTRALINE HCL 50 MG TAB PO SCH (08:14)
[2024-03-30] MEDS: VITAMIN D 1,000 INTERNATIONAL UNITS TABLET PO SCH (08:14)
[2024-03-30] MEDS: buPROPion **XL** TABLET 150MG (WELLBUTRIN XL) PO SCH (08:14)
[2024-03-30] MEDS: LACTOBACILLUS ACIDOPHILUS CAP (BACID) PO SCH (12:22)
[2024-03-30 12:41] VITALS: BP 138/58; TEMP 97.7; O2SAT 97
[2024-03-30] MEDS ORDERED: PROBCAP14 PO (12:54)
[2024-03-30] MEDS ORDERED: CEFD300CAP PO (12:54)
[2024-03-30] MEDS ORDERED: METR-265 PO (12:54)
[2024-03-30] MEDS: FLUCONAZOLE 50MG TABLET PO ONE (14:11)
[2024-03-30] MEDS ORDERED: FLUC150T9 PO (14:24)
== END 2024-03-30 16:15 | disposition home or self-care (01) ==
LOC: M ED 14:43 → M ED INP 22:05 → M MS5PR 03-30 02:19
PROVIDERS: ADMIT Preventive Medicine Undersea and Hyperbaric Medicine; ATTEND Preventive Medicine Undersea and Hyperbaric Medicine
DX: R10.32 Left lower quadrant pain (principal); R11.2 Nausea with vomiting, unspecified; R63.8 Other symptoms and signs concerning food and fluid intake; I10 Essential (primary) hypertension; J45.909 Unspecified asthma, uncomplicated; F39 Unspecified mood [affective] disorder; E55.9 Vitamin D deficiency, unspecified; K21.9 Gastro-esophageal reflux disease without esophagitis; Z87.19 Personal history of other diseases of the digestive system; K76.0 Fatty (change of) liver, not elsewhere classified; Z98.890 Other specified postprocedural states; Z91.040 Latex allergy status; Z79.899 Other long term (current) drug therapy; F17.200 Nicotine dependence, unspecified, uncomplicated
CPT/HCPCS: 36415; 74177; 80048; 80053; 80076; 81001; 82150; 83690; 83735; 85025; 85027; 94640; 96365; 96366; 96367; 96372; 96375; 96376; 99284; J1650; J1836; J1885; J2543; Q9967

== ENCOUNTER → 2024-04-27 | Outpatient (CLI) | payer BC ==
[~2024-04-27] MED LIST changes: +CEFD300CAP PO; +FLUC150T9 PO; +LIDO1CRE2 TOP; -LIDO4CRE12 TOP; +PROBCAP14 PO
== END ==
LOC: M RAD 13:55
PROVIDERS: ATTEND Physician Assistant Medical
DX: R22.1 Localized swelling, mass and lump, neck (principal)

== ENCOUNTER 2024-05-27 17:42 | Emergency (ER) | payer BC, MEDICAID, OTHER ==
[~2024-05-27] VITALS: Ht 154.9 cm; Wt 85.8 kg
[~2024-05-27 17:42] MED LIST changes: -LIDO1CRE2 TOP; +LIDO4CRE12 TOP
[2024-05-27 19:22] LABS: BASO # 0.1 10^3/uL (0.0-0.2); BASO % 0.8 % (0.0-1.0); EOS # 0.3 10^3/uL (0.0-0.5); EOS % 1.8 % (0.0-3.0); HEMOGLOBIN 13.8 g/dl (12.0-15.5); LYMPH # 4.2 10^3/uL (1.5-5.0); LYMPH % 26.9 % (24.0-44.0); MEAN CORPUSCULAR HEMOGLOBIN 28.3 pg (27.0-33.0); MEAN CORPUSCULAR HGB CONC 32.9 g/dl (32.0-36.5); MEAN CORPUSCULAR VOLUME 86.2 fl (80.0-96.0); MONO # 0.9 10^3/uL (0.0-0.8); MONO % 5.7 % (2.0-8.0); NEUTROPHILS # 10.2 10^3/uL (1.5-8.5); NEUTROPHILS % 64.4 % (36.0-66.0); PLATELET COUNT, AUTOMATED 378 10^3/uL (150-450); RED BLOOD COUNT 4.87 10^6/uL (4.00-5.40); WHITE BLOOD COUNT 15.8 10^3/uL (4.0-10.0)
[2024-05-27] MEDS: ACETAMINOPHEN *IV* 1,000 MG in IV 1 EA IV ONE (19:57)
[2024-05-27 20:02] LABS: LIPASE 34 U/L (12-53)
[2024-05-27 20:04] LABS: ALBUMIN 3.5 G/DL (3.2-5.2); ALKALINE PHOSPHATASE 121 U/L (35-104); ALT/SGPT 29 U/L (7.0-40); AST/SGOT 31 U/L (<34); BILIRUBIN,DIRECT < 0.1 MG/DL (<0.4); BILIRUBIN,TOTAL 0.4 MG/DL (0.3-1.2); TOTAL PROTEIN 7.8 G/DL (5.7-8.2)
[2024-05-27] MEDS ORDERED: ISOVUE-370 76% 100ML VIAL As Ordered ONE (21:00)
[2024-05-27 22:00] VITALS: BP 139/71; TEMP 97.8; O2SAT 99
[2024-05-27] MEDS ORDERED: CIPR-249 PO (22:52)
[2024-05-27] MEDS ORDERED: METR-265 PO (22:52)
[2024-05-27] MEDS: CIPROFLOXACIN 500MG TABLET PO ONE (23:01)
[2024-05-27] MEDS: metroNIDAZOLE (FLAGYL) 500MG TABLET PO ONE (23:01)
== END 2024-05-27 23:04 | disposition home or self-care (01) ==
LOC: M ED 17:42
DX: K57.92 Diverticulitis of intestine, part unspecified, without perforation or abscess without bleeding (principal); J45.909 Unspecified asthma, uncomplicated; J44.9 Chronic obstructive pulmonary disease, unspecified; I10 Essential (primary) hypertension; F17.210 Nicotine dependence, cigarettes, uncomplicated; F12.10 Cannabis abuse, uncomplicated; F15.10 Other stimulant abuse, uncomplicated; F10.10 Alcohol abuse, uncomplicated; Z91.040 Latex allergy status; Z79.51 Long term (current) use of inhaled steroids; Z79.899 Other long term (current) drug therapy
CPT/HCPCS: 70450; 70486; 72125; 74177; 80047; 80076; 83690; 85025; 96365; 99284; J0131; Q9967

== ENCOUNTER → 2024-06-11 | Outpatient (CLI) | payer BC, OTHER | LOC: M RAD 15:13 | PROVIDERS: ATTEND Physician Assistant Medical | DX: R22.1 Localized swelling, mass and lump, neck (principal) ==

== ENCOUNTER → 2024-07-12 | Outpatient (REF) | payer OTHER ==
[2024-07-12 14:26] LABS: ALBUMIN 3.4 G/DL (3.2-5.2); ALKALINE PHOSPHATASE 98 U/L (35-104); ALT/SGPT 18 U/L (7.0-40); AST/SGOT 15 U/L (<34); BILIRUBIN,TOTAL 0.3 MG/DL (0.3-1.2); BLOOD UREA NITROGEN 14 MG/DL (9-23); CARBON DIOXIDE LEVEL 26 MMOL/L (20-31); CHLORIDE LEVEL 107 MMOL/L (98-107); CHOLESTEROL LEVEL 209 MG/DL (<200); CHOLESTEROL RISK RATIO 4.12 (<5); CREATININE FOR GFR 0.67 MG/DL (0.55-1.30); GLOMERULAR FILTRATION RATE > 60.0 (>51); GLUCOSE, FASTING 109 MG/DL (60-100); HDL CHOLESTEROL 50.7 MG/DL (>40); LDL CHOLESTEROL 110.5 MG/DL (<100); NON-HDL-C 158.3 MG/DL; POTASSIUM SERUM 4.2 MMOL/L (3.5-5.1); SODIUM LEVEL 140 MMOL/L (136-145); THYROID STIMULATING HORMONE 3.504 uIU/ML (0.55-4.78); TRIGLYCERIDES LEVEL 239 MG/DL (<150)
== END ==
LOC: M LAB REF 12:41
PROVIDERS: ATTEND Family Medicine Addiction Medicine
DX: I10 Essential (primary) hypertension (principal)

== ENCOUNTER → 2024-10-12 | Outpatient (REF) | payer OTHER ==
[~2024-10-12] MED LIST changes: +PERC5TAB12 PO
[2024-10-12 18:54] LABS: ALBUMIN 3.5 G/DL (3.2-5.2); ALKALINE PHOSPHATASE 93 U/L (35-104); ALT/SGPT 28 U/L (7.0-40); AST/SGOT 21 U/L (<34); BILIRUBIN,TOTAL 0.4 MG/DL (0.3-1.2); BLOOD UREA NITROGEN 13 MG/DL (9-23); CALCIUM LEVEL 8.8 MG/DL (8.5-10.1); CARBON DIOXIDE LEVEL 26 MMOL/L (20-31); CHLORIDE LEVEL 106 MMOL/L (98-107); CHOLESTEROL LEVEL 224 MG/DL (<200); CHOLESTEROL RISK RATIO 4.89 (<5); CREATININE FOR GFR 0.69 MG/DL (0.55-1.30); GLOMERULAR FILTRATION RATE > 60.0 (>51); GLUCOSE, FASTING 102 MG/DL (60-100); HDL CHOLESTEROL 45.8 MG/DL (>40); LDL CHOLESTEROL 135.6 MG/DL (<100); NON-HDL-C 178.2 MG/DL; POTASSIUM SERUM 4.6 MMOL/L (3.5-5.1); SODIUM LEVEL 141 MMOL/L (136-145); THYROID STIMULATING HORMONE 1.606 uIU/ML (0.55-4.78); TOTAL PROTEIN 7.2 G/DL (5.7-8.2); TRIGLYCERIDES LEVEL 213 MG/DL (<150)
== END ==
LOC: M LAB REF 17:30
PROVIDERS: ATTEND Family Medicine Addiction Medicine
DX: E78.5 Hyperlipidemia, unspecified (principal)

== ENCOUNTER 2024-10-15 01:52 | Emergency (ER) | payer OTHER ==
[~2024-10-15] VITALS: Ht 154.9 cm; Wt 89.8 kg
[~2024-10-15 01:52] MED LIST changes: -PERC5TAB12 PO
[2024-10-15] MEDS: PERCOCET 5MG/325MG TAB PO ONE (04:26)
[2024-10-15] MEDS ORDERED: PERC5TAB12 PO (06:34)
[2024-10-15 06:47] VITALS: BP 131/65; TEMP 97.3; O2SAT 97
== END 2024-10-15 06:53 | disposition home or self-care (01) ==
LOC: M ED 01:52
DX: S52.125A Nondisplaced fracture of head of left radius, initial encounter for closed fracture (principal); Y92.019 Unspecified place in single-family (private) house as the place of occurrence of the external cause; Y93.9 Activity, unspecified; Y99.9 Unspecified external cause status; W19.XXXA Unspecified fall, initial encounter; I10 Essential (primary) hypertension; J44.9 Chronic obstructive pulmonary disease, unspecified; F17.210 Nicotine dependence, cigarettes, uncomplicated; Z91.040 Latex allergy status; Z79.51 Long term (current) use of inhaled steroids; Z79.2 Long term (current) use of antibiotics; Z79.899 Other long term (current) drug therapy

== ENCOUNTER → 2024-10-23 | Outpatient (CLI) | payer OTHER ==
[~2024-10-23] MED LIST changes: +PERC5TAB12 PO
== END ==
LOC: M SOG 07:49
PROVIDERS: ATTEND Orthopaedic Surgery
DX: S52.125A Nondisplaced fracture of head of left radius, initial encounter for closed fracture (principal); Y92.9 Unspecified place or not applicable; Y93.9 Activity, unspecified; Y99.9 Unspecified external cause status; X58.XXXA Exposure to other specified factors, initial encounter

== ENCOUNTER → 2024-10-23 | Outpatient (CLI) | payer OTHER | LOC: M RAD 13:46 | PROVIDERS: ATTEND Physician Assistant Medical | DX: R22.1 Localized swelling, mass and lump, neck (principal) ==

== ENCOUNTER → 2024-11-06 | Outpatient (REF) | payer OTHER ==
[~2024-11-06] MED LIST changes: +BUPR150T15 PO; -BUPR1TAB53 PO
== END ==
LOC: M LAB REF 16:59
PROVIDERS: ATTEND Nurse Practitioner Family
DX: J11.1 Influenza due to unidentified influenza virus with other respiratory manifestations (principal)

== ENCOUNTER 2025-01-25 13:03 | Emergency (ER) | payer OTHER ==
[~2025-01-25] VITALS: Ht 154.9 cm; Wt 84.9 kg
[~2025-01-25 13:03] MED LIST changes: -ALPH600C PO; +ALPH600C2 PO
[2025-01-25 14:00] LABS: BASO # 0.0 10^3/uL (0.0-0.2); BASO % 0.6 % (0.0-1.0); EOS # 0.0 10^3/uL (0.0-0.5); EOS % 0.6 % (0.0-3.0); LYMPH # 3.1 10^3/uL (1.5-5.0); LYMPH % 43.7 % (24.0-44.0); MONO # 0.4 10^3/uL (0.0-0.8); MONO % 5.0 % (2.0-8.0); NEUTROPHILS # 3.6 10^3/uL (1.5-8.5); NEUTROPHILS % 49.8 % (36.0-66.0); PLATELET COUNT, AUTOMATED 327 10^3/uL (150-450)
[2025-01-25 14:08] LABS: KETONE, URINE AUTO RFX NEGATIVE (NEGATIVE); LEUKOCYTE ESTERASE UR AUTO RFX NEGATIVE (NEGATIVE); MUCUS, URINE RFX SMALL (NEGATIVE); NITRITE, URINE AUTO RFX NEGATIVE (NEGATIVE); RBC, URINE AUTO RFX 5 /HPF (0-3); SQUAM EPITHELIAL CELL UR AURFX 0 /HPF (0-6); WBC, URINE AUTO RFX 1 /HPF (0-3)
[2025-01-25 14:32] LABS: ALT/SGPT 31 U/L (7.0-40); AST/SGOT 23 U/L (<34); CALCIUM LEVEL 8.4 MG/DL (8.5-10.1); CARBON DIOXIDE LEVEL 20 MMOL/L (20-31); CHLORIDE LEVEL 106 MMOL/L (98-107); CREATININE FOR GFR 0.64 MG/DL (0.55-1.30); GLOMERULAR FILTRATION RATE > 90.0 (>51); POTASSIUM SERUM 3.9 MMOL/L (3.5-5.1); SODIUM LEVEL 142 MMOL/L (136-145)
[2025-01-25] MEDS: ONDANSETRON 4MG 2ML VIAL IV ONE (16:58)
[2025-01-25] MEDS: KETOROLAC 30 MG/ML 1 ML VIAL IV ONE (17:00)
[2025-01-25] MEDS ORDERED: ISOVUE-370 76% 100 ML VIAL As Ordered ONE (17:04)
[2025-01-25 19:49] VITALS: BP 143/69; TEMP 97.7; O2SAT 98
[2025-01-25] MEDS: CIPROFLOXACIN 500 MG TABLET PO ONE (19:55)
== END 2025-01-25 19:59 | disposition home or self-care (01) ==
LOC: M ED 13:03
DX: K57.32 Diverticulitis of large intestine without perforation or abscess without bleeding (principal); F17.210 Nicotine dependence, cigarettes, uncomplicated; F19.10 Other psychoactive substance abuse, uncomplicated; F10.10 Alcohol abuse, uncomplicated; Z91.040 Latex allergy status; Z79.51 Long term (current) use of inhaled steroids; Z79.2 Long term (current) use of antibiotics; Z79.899 Other long term (current) drug therapy
CPT/HCPCS: 74177; 80048; 80076; 81001; 83690; 85025; 96374; 96375; 99284; J1885; J2405; Q9967

== ENCOUNTER → 2025-02-22 | Outpatient (CLI) | payer OTHER | LOC: M PLAIMG 08:38 | PROVIDERS: ATTEND Family Medicine Addiction Medicine | DX: Z13.6 Encounter for screening for cardiovascular disorders (principal); Z82.49 Family history of ischemic heart disease and other diseases of the circulatory system ==

== ENCOUNTER → 2025-03-19 | Outpatient (CLI) | payer OTHER | LOC: M WHC 14:12 | PROVIDERS: ATTEND Family Medicine Addiction Medicine | DX: Z12.31 Encounter for screening mammogram for malignant neoplasm of breast (principal); R92.313 Mammographic fatty tissue density, bilateral breasts; N83.202 Unspecified ovarian cyst, left side ==

== ENCOUNTER → 2025-03-19 | Outpatient (CLI) | payer OTHER | LOC: M WHC 14:13 | PROVIDERS: ATTEND Physician Assistant Medical | DX: N83.202 Unspecified ovarian cyst, left side (principal) ==

== ENCOUNTER 2025-03-30 15:12 | Emergency (ER) | payer OTHER ==
[2025-03-30] MEDS: KETOROLAC 30 MG/ML 1 ML VIAL IM ONE (16:37)
[2025-03-30] MEDS: CYCLOBENZAPRINE 10 MG TABLET PO ONE (16:37)
[2025-03-30] MEDS ORDERED: CYCL-707 PO (17:13)
[2025-03-30 17:29] VITALS: BP 156/77; TEMP 96.7; O2SAT 98
== END 2025-03-30 17:30 | disposition home or self-care (01) ==
LOC: M ED 15:12
DX: M94.0 Chondrocostal junction syndrome [Tietze] (principal); I10 Essential (primary) hypertension; Z91.040 Latex allergy status; Z79.51 Long term (current) use of inhaled steroids; Z79.2 Long term (current) use of antibiotics; Z79.899 Other long term (current) drug therapy
CPT/HCPCS: 96372; 99284; J1885

== ENCOUNTER → 2025-05-28 | Outpatient (REF) | payer OTHER ==
[2025-05-28 16:53] LABS: ALT/SGPT 25 U/L (7.0-40); AST/SGOT 17 U/L (<34); CALCIUM LEVEL 8.3 MG/DL (8.5-10.1); CARBON DIOXIDE LEVEL 26 MMOL/L (20-31); CHLORIDE LEVEL 103 MMOL/L (98-107); CHOLESTEROL LEVEL 210 MG/DL (<200); CHOLESTEROL RISK RATIO 3.63 (<5); CREATININE FOR GFR 0.71 MG/DL (0.55-1.30); GLOMERULAR FILTRATION RATE > 90.0 (>51); LDL CHOLESTEROL 128.7 MG/DL (<100); NON-HDL-C 152.3 MG/DL; POTASSIUM SERUM 3.9 MMOL/L (3.5-5.1); SODIUM LEVEL 138 MMOL/L (136-145); TRIGLYCERIDES LEVEL 118 MG/DL (<150)
== END ==
LOC: M LAB REF 16:15
PROVIDERS: ATTEND Family Medicine Addiction Medicine
DX: I10 Essential (primary) hypertension (principal)

== ENCOUNTER 2025-06-10 09:36 | Day surgery (SDC) | payer OTHER ==
[~2025-06-10] VITALS: Ht 154.9 cm; Wt 89.3 kg
[2025-06-10] MEDS ORDERED: GLYCOPYRROLATE INJ 0.2 MG/ML 2 ML VIAL As Ordered ONE (10:25)
[2025-06-10] MEDS ORDERED: LIDOCAINE 2% 100 MG/5 ML SDV (FOR ANES.) As Ordered ONE (10:25)
[2025-06-10 10:59] VITALS: TEMP 97.2
[2025-06-10 11:23] VITALS: BP 153/67; O2SAT 95
== END 2025-06-10 11:33 | disposition home or self-care (01) ==
LOC: M OPP 09:36
PROVIDERS: ATTEND Internal Medicine Gastroenterology
DX: D12.0 Benign neoplasm of cecum (principal); K57.30 Diverticulosis of large intestine without perforation or abscess without bleeding; Z86.0100 Personal history of colon polyps, unspecified; J44.9 Chronic obstructive pulmonary disease, unspecified; F17.210 Nicotine dependence, cigarettes, uncomplicated; Z91.040 Latex allergy status; Z79.899 Other long term (current) drug therapy
CPT/HCPCS: 45385; 88305; J1596